=== PATIENT | male | born 1985 | race Two or more races ===

== ENCOUNTER 2024-12-11 10:38 | Inpatient (IN) | payer MEDICAID, OTHER ==
[~2024-12-11] VITALS: Ht 167.6 cm; Wt 87.2 kg
[2024-12-11] VITALS (8 sets, daily range): BP systolic 144–149; BP diastolic 92–98; PULSE 22–108; RESP 11–22; TEMP 98.5–98.9; O2SAT 5–99
--- NOTE | 2024-12-11 11:32 | ED.PDOC ---
History of Present Illness HPI Comments 39-year-old male with PMHx CKF, HTN presents with a chief complaint of SOB. Patient states that he receives dialysis every Mon/Mon/Mon and last had dialysis on Monday12/06/2024. Patient mentions that now he has developed SOB. 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 Patient mentions the last place he had dialysis was "[facility]". Patient has a dialysis shunt in his right clavicle area. Chief Complaint: Shortness of Breath Time Seen by MD: 11:22 Reviewed Notes: Nurses Notes, Medications, Allergies Allergies: Coded Allergies: Penicillins (Verified Allergy, Unknown, 12/11/24) Information Source: Patient Mode of Arrival: Ambulatory Severity: Moderate Timing: Days Duration: Since onset Prehospital treatment: None Past Medical History PAST MEDICAL HISTORY: CKF, HTN Surgical History (Other): KIDNEY SURGERY, CATARACTS Family History Family History: Reviewed,noncontributory to illness Social History Smoker: Non-Smoker Alcohol: Denies ETOH Use Drugs: Denies Drug Use Lives In: Home Constitutional: denies: chills, diaphoresis, fatigue, fever, malaise, sweats, weakness, others EENTM: denies: blurred vision, double vision, ear bleeding, ear discharge, ear drainage, ear pain, ear ringing, eye pain, eye redness, hearing loss, mouth pain, mouth swelling, nasal discharge, nose bleeding, nose congestion, nose pa in, photophobia, tearing, throat pain, throat swelling, voice changes, others Respiratory: reports: shortness of breath; denies: cough, hemoptysis, orthopnea, SOB at rest, SOB with excertion, stridor, wheezing, others Cardiovascular: denies: chest pain, dizzy spells, diaphoresis, Dyspnea on exertion, edema, irregular heart beat, left arm pain, lightheadedness, palpitations, PND, syncope, others Gastrointestinal: denies: abdomen distended, abdominal pain, blood streaked bowels, constipated, diarrhea, dysphagia, difficulty swallowing, hematemesis, m elfego, nausea, poor appetite, poor fluid intake, rectal bleeding, rectal pain, vomiting, others Genitourinary: denies: burning, dysuria, flank pain, frequency, hematuria, incontinence, penile discharge, penile sore, pain, testicle pain, testicle swelling, urgency, others Neurological: denies: dizziness, fainting, headache, left sided numbness, left sided weakness, numbness, paresthesia, pre-existing deficit, right sided numbness, right sided weakness, seizure, speech problems, tingling, tremors, weakness, others Musculoskeletal: denies: back pain, gout, joint pain, joint swelling, muscle pain, muscle stiffness, neck pain, others Integumetry: denies: bruises, change in color, change in hair/nails, dryness, laceration, lesions, lumps, rash, wounds, others Allergic/Immunocompromised: denies: Difficulty Healing, Frequent Infections, Hives, Itching, others Hematologic/Lymphatic: denies: anemia, blood clots, easy bleeding, easy bruising, swollen glands, others Endocrine: denies: excessive hunger, excessive sweating, excessive thirst, excessive urination, flushing, intolerance to cold, intolerance to heat, unexplained weight gain, unexplained weight loss, others Psychiatric: denies: anxiety, bipolar disorder, depression, hopeless, panic disorder, schizophrenia, sleepless, suicidal, others All Other Systems: Reviewed and Negative Physical Exam General Appearance: Moderate Distress HEENT: Pale Conjuntivae (L), Pale Conjuntivae (R), Pharynx Normal, TMs Normal Neck: Full Range of Motion, Non-Tender, Normal, Normal Inspection Respiratory: Chest Non-Tender, Decreased Breath Sounds, No Accessory Muscle Use, Rales, Respiratory Distress Cardiovascular: No Edema, No JVD, No Murmur, No Gallop, Normal Peripheral Pulse s, Regular Rate/Rhythm, Other (Antonio catheter to the right chest) Breast Exam: Deferred Gastrointestinal: No Organomegaly, Non Tender, No Pulsatile Mass, Normal Bowel Sounds, Soft Genitalia: Deferred Pelvic: Deferred Rectal: Deferred Extremities: No calf tenderness, Normal capillary refill, Pedal edema Musculoskeletal : Apperance: Normal Neurologic: Alert, hematology technician II-XII nml as Tested, Motor Weakness, Normal Affect, Normal Mood, No Sensory Deficits Cerebellar Function: Unable to Test Reflexes: Normal Skin: Dry, Pallor, Warm Lymphatic: No Adenopathy Was a procedure done? Was a procedure done?: No EKG EKG : Pulse Rate (adult): 102 [place]: Normal Cardiac Rhythm: ST Block: None Hypertrophy: LVH ST: Normal Differential Dx Considerations may include: Generalized weakness, acute renal failure, hyperkalemia, electrolyte imbalance X-Ray, Labs, Meds, VS Vital Signs Date Time Temp Pulse Resp B/P (MAP) Pulse Ox O2 Delivery O2 Flow Rate FiO2 12/11/24 11:50 99.0 107 18 168/106 (126) 93 12/11/24 11:32 102 12/11/24 11:22 107 Lab Test 12/11/24 11:40 Range/Units White Blood Count 10.0 4.4-10.8 10^3/uL Red Blood Count 2.23 L 4.5-5.90 10^6/uL Hemoglobin 6.9 *L 13.5-17.5 g/dL Hematocrit 20.5 L 41.0-53.0 % Mean Corpuscular Volume 91.8 80.0-100.0 fL Mean Corpuscular Hemoglobin 30.9 28.0-32.0 pg Mean Corpuscular Hemoglobin Concent 33.7 32.0-36.0 g/dL Red Cell Distribution Width 15.3 H 11.8-14.3 % Platelet Count 287 140-450 10^3/uL Mean Platelet Volume 7.1 6.9-10.8 fL Neutrophils (%) (Auto) 84.7 H 37.0-80.0 % Lymphocytes (%) (Auto) 8.5 L 10.0-50.0 % Monocytes (%) (Auto) 5.1 0.0-12.0 % Eosinophils (%) (Auto) 0.7 0.0-7.0 % Basophils (%) (Auto) 1.0 0.0-2.0 % Neutrophils # (Auto) 8.5 1.6-8.6 10 ^3/uL Lymphocytes # (Auto) 0.9 0.4-5.4 10 ^3/uL Monocytes # (Auto) 0.5 0-1.3 10 ^3/uL Eosinophils # (Auto) 0.1 0-0.8 10 ^3/uL Basophils # (Auto) 0.1 0-0.2 10 ^3/uL Nucleated Red Blood Cells 0.0 % Platelet Estimate Pending Sodium Level 143 136-145 mmol/L Potassium Level 5.2 H 3.5-5.1 mmol/L Chloride Level 103 98-107 mmol/L Carbon Dioxide Level 25 20-31 mmol/L Anion Gap 15 5-15 Blood Urea Nitrogen 83 *H 9-23 mg/dL Creatinine 19.20 *H 0.700-1.30 mg/dL Glomerular Filtration Rate Calc 3 >90 mL/min BUN/Creatinine Ratio 4.3 L 10.0-20.0 Serum Glucose 101 74-106 mg/dL Calcium Level 10.2 8.7-10.4 mg/dL Magnesium Level 2.3 1.6-2.6 mg/dL Chest X-Ray Impression: 1. Diffuse bilateral pulmonary infiltrates may be due to pneumonia and/or CHF. 2. Cardiomegaly. 3. Postoperative changes of right chest tunneled dialysis catheter and left upper abdominal vascular coiling. The patient's CBC shows significant anemia with a hemoglobin of 6.9 and hematocrit of 20.5 The platelets are within normal limits The chemistry panel shows a potassium of 5.2 The BUN is 83 and the creatinine is 19.20 At this time, the patient was being admitted to the hospitalist A nephrology consult is being obtained for dialysis at this time The patient is being admitted Images Reviewed?: Images reviewed and evaluated by me Time of 1ST Reevaluation: 11:52 Reevaluation 1ST: Unchanged Patient Education/Counseling: Diagnosis, Treatment, Prognosis Family Education/Counseling: No Family Present Departure 1 Departure Time of Disposition: 12:28 Impression: Primary Impression: ESRD needing dialysis Additional Impressions: Pulmonary edema Qualified Codes: J81.0 - Acute pulmonary edema Hyperkalemia Disposition: ADMITTED INPATIENT Admit to: [facility] Condition: Fair Critical Care Note Critical Care Time?: Yes (55 min-critical care time only) Stability Stability form required: Yes Unstable for transfer: Telemetry monitoring (Telemetry monitoring required), ED Physician Assesment (Clinical assesment) Heart Score Heart Score: Heart Score Response (Comments) Value History N/A 0 EKG N/A 0 Age N/A 0 Risk Factors N/A 0 Troponin N/A 0 Total 0 I personally scribed for TAMY HAGAN MD ([email or web address]) on 12/11/24 at 11:32. Electronically submitted by Petey Vallejo ([email or web address]). I personally scribed for TAMY HAGAN MD ([email or web address]) on 12/11/24 at 11:52. Electronically submitted by Petey Vallejo ([email or web address]). TAMY HAGAN MD Dec 11, 2024 11:32
--- NOTE | 2024-12-11 11:50 | DVH ---
EXAM: XY CHEST TWO VIEWS ROUTINE HISTORY: sob COMPARISON: None TECHNIQUE: Frontal and lateral views of the chest were performed. FINDINGS: There is a right chest tunnel dialysis catheter with its tip in the upper to mid SVC. There are diff use bilateral interstitial and alveolar infiltrates. No pneumothorax. The heart is enlarged. There a re vascular coils in the left upper abdomen. IMPRESSION: 1. Diffuse bilateral pulmonary infiltrates may be due to pneumonia and/or CHF. 2. Cardiomegaly. 3. Postoperative changes of right chest tunneled dialysis catheter and left upper abdominal vascular coiling.
[2024-12-11 11:56] LABS: Basophils # (auto) 0.1 10 ^3/uL (0-0.2); Eosinophils # (auto) 0.1 10 ^3/uL (0-0.8); Eosinophils % (auto) 0.7 % (0.0-7.0); Monocytes # (auto) 0.5 10 ^3/uL (0-1.3); Monocytes % (auto) 5.1 % (0.0-12.0); Red Blood Cells 2.23 10^6/uL (4.5-5.90)
[2024-12-11 11:58] LABS: Hematocrit 20.5 % (41.0-53.0); Lymphocytes # (auto) 0.9 10 ^3/uL (0.4-5.4); Lymphocytes % (auto) 8.5 % (10.0-50.0); Mean Corpuscular Hemoglobin 30.9 pg (28.0-32.0); Mean Corpuscular Hgb Conc. 33.7 g/dL (32.0-36.0); Mean Corpuscular Volume 91.8 fL (80.0-100.0); Neutrophils # (auto) 8.5 10 ^3/uL (1.6-8.6); Neutrophils % (auto) 84.7 % (37.0-80.0); Platelet Count (auto) 287 10^3/uL (140-450); Red Cell Distribution Width 15.3 % (11.8-14.3)
[2024-12-11 12:02] LABS: Hemoglobin 6.9 g/dL (13.5-17.5)
[2024-12-11 12:03] LABS: Chloride 103 mmol/L (98-107); Sodium 143 mmol/L (136-145)
[2024-12-11 12:04] LABS: Anion Gap 15 (5-15); Calcium 10.2 mg/dL (8.7-10.4); Carbon Dioxide 25 mmol/L (20-31)
[2024-12-11 12:05] LABS: Potassium 5.2 mmol/L (3.5-5.1)
[2024-12-11 12:09] LABS: BUN/Creatinine Ratio 4.3 (10.0-20.0); Glucose 101 mg/dL (74-106)
[2024-12-11 12:10] LABS: Magnesium 2.3 mg/dL (1.6-2.6)
[2024-12-11 12:12] LABS: Blood Urea Nitrogen 83 mg/dL (9-23)
[2024-12-11 13:23] LABS: Platelet Estimate Adequate
--- NOTE | 2024-12-11 15:20 | DVHINCON2 ---
Date of service: Dec 11, 2024 Reason for Consultation ESRD History of Present Illness 39 years old male with past medical history of hypertension, ESRD on dialysis Monday schedule presented with chief complaints of shortness of breath and not feeling well after dialysis Patient tells me [place] moved [place] here and staying with his brother yesterday and does not have outpt HD set up.. He is on dialysis about a month now. Last dialysis was last Monday Past Medical History As per HPI Allergies: Coded Allergies: Penicillins (Verified Allergy, Unknown, 12/11/24) Review of Systems As mentioned in HPI H&P Exam Vital Signs/I&O Vital Sign Date Time Temp Pulse Resp B/P (MAP) Pulse Ox O2 Delivery O2 Flow Rate FiO2 12/11/24 11:50 99.0 107 18 168/106 (126) 93 Physical Exam General-in mild respiratory distress HEENT-normocephalic, no icterus, no pallor, neck supple Respiratory-fair air entry bilateral, [id number] heard, no murmurs appreciated Abdominal-soft, nontender, nondistended Musculoskeletal-positive pedal edema, no calf tenderness Genitourinary-deferred Neuro-awake alert oriented x3, Psychiatric-not agitated, cooperative, Labs/Diagnostic Data Labs/Diagnostic Data Laboratory Tests Test 12/11/24 11:40 Range/Units White Blood Count 10.0 4.4-10.8 10^3/uL Red Blood Count 2.23 L 4.5-5.90 10^6/uL Hemoglobin 6.9 *L 13.5-17.5 g/dL Hematocrit 20.5 L 41.0-53.0 % Mean Corpuscular Volume 91.8 80.0-100.0 fL Mean Corpuscular Hemoglobin 30.9 28.0-32.0 pg Mean Corpuscular Hemoglobin Concent 33.7 32.0-36.0 g/dL Red Cell Distribution Width 15.3 H 11.8-14.3 % Platelet Count 287 140-450 10^3/uL Mean Platelet Volume 7.1 6.9-10.8 fL Neutrophils (%) (Auto) 84.7 H 37.0-80.0 % Lymphocytes (%) (Auto) 8.5 L 10.0-50.0 % Monocytes (%) (Auto) 5.1 0.0-12.0 % Eosinophils (%) (Auto) 0.7 0.0-7.0 % Basophils (%) (Auto) 1.0 0.0-2.0 % Neutrophils # (Auto) 8.5 1.6-8.6 10 ^3/uL Lymphocytes # (Auto) 0.9 0.4-5.4 10 ^3/uL Monocytes # (Auto) 0.5 0-1.3 10 ^3/uL Eosinophils # (Auto) 0.1 0-0.8 10 ^3/uL Basophils # (Auto) 0.1 0-0.2 10 ^3/uL Nucleated Red Blood Cells 0.0 % Platelet Estimate Adequate Sodium Level 143 136-145 mmol/L Potassium Level 5.2 H 3.5-5.1 mmol/L Chloride Level 103 98-107 mmol/L Carbon Dioxide Level 25 20-31 mmol/L Anion Gap 15 5-15 Blood Urea Nitrogen 83 *H 9-23 mg/dL Creatinine 19.20 *H 0.700-1.30 mg/dL Glomerular Filtration Rate Calc 3 >90 mL/min BUN/Creatinine Ratio 4.3 L 10.0-20.0 Serum Glucose 101 74-106 mg/dL Calcium Level 10.2 8.7-10.4 mg/dL Magnesium Level 2.3 1.6-2.6 mg/dL Assessment ESRD on hemodialysis- moved from other state Noncompliance Hypertension uncontrolled Acute hypoxic respiratory failure Obesity Anemia recs Hemodialysis arranged for today [facility] with HD Diuretics IV protective services social worker for chair time in this area We will follow closely Plan discussed with: Patient OSWALDO ISAAC MD Dec 11, 2024 15:20
[2024-12-11] MEDS ORDERED: AMLO1TAB23 PO (15:40)
[2024-12-11] MEDS ORDERED: HYDROcodone-ACET 5/325MG TAB PO PRN (15:45)
[2024-12-11] MEDS ORDERED: DOCUSATE SOD 100 MG CAP PO PRN (15:45)
[2024-12-11] MEDS ORDERED: ONDANSETRON HCL 4 MG/2 ML VIAL IV PRN (15:45)
[2024-12-11] MEDS ORDERED: ACETAMINOPHEN 325 MG TAB PO PRN (15:45)
[2024-12-11] MEDS ORDERED: NITROGLYCERIN 0.4 MG SL TAB SL PRN (15:45)
[2024-12-11] MEDS ORDERED: MORPHINE SULFATE INJ 2 MG/ml SYRG IV PRN (15:45)
--- NOTE | 2024-12-11 15:58 | DVHHP2 ---
History of Present Illness Reason for Visit: ESRD needing dialysis History of Present Illness Elizabeth Sandoval is a 39-year-old male with past medical history of hypertension, and ESRD on HD M,W,F, who came in due to needing dialysis. Patient has been on hemodialysis for about 7-8 months. He recently moved from [place] to [facility] to live with his brother. Last dialysis was on 12/06/2024. Patient states he missed dialysis due to moving, and he just arrived in [place] yesterday. Patient started experiencing shortness of breath yesterday prompting him to come to the hospital. He states he still makes urine, was on a water pill, but the only medication he has at this time is Amlodipine. On arrival to ER labs revealed that he is anemic, and hyperkalemic. Cardiovascular: HTN Renal/: Chronic renal failure (HD M,W,F) Past Surgical History: Other (bilateral eyes and right kidney) Smoke: Quit (15 days ago) ALCOHOL: none Drugs: None Lives: with Family Review of Systems Constitutional: No: Fever, Chills, Sweats, Weakness, Malaise, Other Eyes: No: Pain, Vision change, Conjunctivae inflammation, Eyelid inflammation, Other, Redness ENT: No: Ear pain, Ear discharge, Nose pain, Nose discharge, Nose congestion, Mouth pain, Mouth swelling, Throat pain, Throat swelling, Other Respiratory: Shortness of breath, SOB with excertion; No: Cough, Dry, Wheezing, Hemoptysis, Pleuritic Pain, Sputum, Wheezing, Other Cardiovascular: No: Chest Pain, Palpitations, Orthopnea, Paroxysmal Noc. Dyspnea, Edema, Lt Headedness, Other Gastrointestinal: No: Nausea, Vomiting, Abdominal Pain, Diarrhea, Constipation, Melena, Hematochezia, Other Genitourinary: No Dysuria, No Frequency, No Incontinence, No Hematuria, No Retention, No Other Musculoskeletal: No: other, neck pain, shoulder pain, arm pain, back pain, hand pain, leg pain, foot pain Skin: No: Rash, Lesions, Jaundice, Bruising, Other Neurological: No: Weakness, Numbness, Incoordination, Change in speech, Confusion, Seizures, Other Allergies: Coded Allergies: Penicillins (Verified Allergy, Unknown, 12/11/24) Medications Current Medications Medications Dose Ordered Sig/Bijal Route Start Time Stop Time Status Last Admin Dose Admin Sodium Chloride 10 ml Q8HR IV 12/11/24 22:00 UNV Acetaminophen/ Hydrocodone Bitart 1 tab Q4HP PRN PO 12/11/24 15:45 UNV Ondansetron HCl 4 mg Q4HP PRN IV 12/11/24 15:45 UNV Docusate Sodium 100 mg BIDPRN PRN PO 12/11/24 15:45 UNV Acetaminophen 650 mg Q6HP PRN PO 12/11/24 15:45 UNV Nitroglycerin 0.4 mg Q5MINP PRN SL 12/11/24 15:45 UNV Morphine Sulfate 2 mg Q30M PRN IV 12/11/24 15:45 UNV Exam Vital Signs Vital Signs Date Time Temp Pulse Resp B/P (MAP) Pulse Ox O2 Delivery O2 Flow Rate FiO2 12/11/24 11:50 99.0 107 18 168/106 (126) 93 General Appearance: Alert, Oriented X3, Cooperative, moderate distress HEENT: Atraumatic, PERRLA Respiratory: Other (Diminished breath sounds) Cardiovascular: Normal S1, Normal S2, Other (tachycardia) Abdominal: Normal bowel sounds, Soft, No tenderness, No hepatospenomegaly Extremities: No clubbing, No cyanosis, No edema, Normal pulses, No tenderness/swelling Skin: No rashes, No breakdown, No significant lesion Neuro: Normal gait, Normal speech, Strength at 5/5 X4 ext Psych/Mental Status: Mental status NL, Mood NL Labs/Xrays Labs Test 12/11/24 11:40 Range/Units White Blood Count 10.0 4.4-10.8 10^3/uL Red Blood Count 2.23 L 4.5-5.90 10^6/uL Hemoglobin 6.9 *L 13.5-17.5 g/dL Hematocrit 20.5 L 41.0-53.0 % Mean Corpuscular Volume 91.8 80.0-100.0 fL Mean Corpuscular Hemoglobin 30.9 28.0-32.0 pg Mean Corpuscular Hemoglobin Concent 33.7 32.0-36.0 g/dL Red Cell Distribution Width 15.3 H 11.8-14.3 % Platelet Count 287 140-450 10^3/uL Mean Platelet Volume 7.1 6.9-10.8 fL Neutrophils (%) (Auto) 84.7 H 37.0-80.0 % Lymphocytes (%) (Auto) 8.5 L 10.0-50.0 % Monocytes (%) (Auto) 5.1 0.0-12.0 % Eosinophils (%) (Auto) 0.7 0.0-7.0 % Basophils (%) (Auto) 1.0 0.0-2.0 % Neutrophils # (Auto) 8.5 1.6-8.6 10 ^3/uL Lymphocytes # (Auto) 0.9 0.4-5.4 10 ^3/uL Monocytes # (Auto) 0.5 0-1.3 10 ^3/uL Eosinophils # (Auto) 0.1 0-0.8 10 ^3/uL Basophils # (Auto) 0.1 0-0.2 10 ^3/uL Nucleated Red Blood Cells 0.0 % Platelet Estimate Adequate Sodium Level 143 136-145 mmol/L Potassium Level 5.2 H 3.5-5.1 mmol/L Chloride Level 103 98-107 mmol/L Carbon Dioxide Level 25 20-31 mmol/L Anion Gap 15 5-15 Blood Urea Nitrogen 83 *H 9-23 mg/dL Creatinine 19.20 *H 0.700-1.30 mg/dL Glomerular Filtration Rate Calc 3 >90 mL/min BUN/Creatinine Ratio 4.3 L 10.0-20.0 Serum Glucose 101 74-106 mg/dL Calcium Level 10.2 8.7-10.4 mg/dL Magnesium Level 2.3 1.6-2.6 mg/dL EXAM: XY CHEST TWO VIEWS ROUTINE FINDINGS: There is a right chest tunnel dialysis catheter with its tip in the upper to mid SVC. There are diffuse bilateral interstitial and alveolar infiltrates. No pneumothorax. The heart is enlarged. There are vascular coils in the left upper abdomen. IMPRESSION: 1. Diffuse bilateral pulmonary infiltrates may be due to pneumonia and/or CHF. 2. Cardiomegaly. 3. Postoperative changes of right chest tunneled dialysis catheter and left upper abdominal vascular coiling. Assessment/Plan Assessment/Plan Assessment: ESRD needing dialysis, Hypertension, Anemia, Hyperkalemia, Fluid overload, Plan: Admit to Tele, Nephrology consult, Transfuse 1 unit PRBC, Home medications reconciled, Manage/Monitor H&H closely, Plan discussed with: Patient My Orders Orders - THAIS STALLINGS Procedure Category Date Status Time Admit ADMIT 12/11/24 Transmitted 15:38 Code Status CODE 12/11/24 Transmitted 15:38 Renal DIET 12/11/24 Transmitted Standard(2gna,3gk,Lopho) Dinner Sodium Chloride Lock PHA 12/11/24 Logged (Saline Lock Ns) 22:00 Hydrocodone-Acet PHA 12/11/24 Logged 5/325mg Tab ([place] 15:45 Ondansetron Hcl PHA 12/11/24 Logged (Zofran) 15:45 Docusate Sodium PHA 12/11/24 Logged Capsule (Colace 15:45 Complete Blood Count LAB 12/12/24 Verified 04:00 Comprehensive LAB 12/12/24 Verified Metabolic Panel 04:00 Condition: Critical RIANNA 12/11/24 In Process 15:38 Acetaminophen Tablet PHA 12/11/24 Logged (Tylenol Tablet) 15:45 Nitroglycerin PHA 12/11/24 Logged Sublingual (Ntrostat 15:45 Morphine Sulfate PHA 12/11/24 Logged Injection 15:45 Stat Ekg For Chest RIANNA 12/11/24 In Process Pain 15:38 Notify Md Of Changes RIANNA 12/11/24 In Process From Base 15:38 Assistant Property Manager For RIANNA 12/11/24 In Process 24 Hours 15:38 Emergency Dysrhythmia [facility] 12/11/24 In Process Protocol 15:38 Rhythm Strips Once RIANNA 12/11/24 In Process Every Shift 15:38 Oxygen By Nasal RT 12/11/24 Transmitted Cannula 15:38 (Nf) Amlodipine PHA 12/11/24 Transmitted Besylate 22:00 Date of Service: Dec 11, 2024 Billing Provider: THAIS STALLINGS Common Visit Codes: [id number] INP/OBS CARE (HIGH) THAIS STALLINGS Dec 11, 2024 15:58
[2024-12-11] MEDS: SODIUM CHL 0.9% 1000 ML BAG XX ONE (18:45)
[2024-12-11] MEDS: BUMETANIDE 2.5mg/10ml (0.25 mg/ml) INJ IV SCH (18:58)
[2024-12-11] MEDS: EPOETIN ALFA-EPBX 4,000 UNIT/ML VIAL SC ONE (21:26)
[2024-12-11] MEDS: SODIUM CHLOR 0.9% PF (SALINE LOCK) 10ML VIAL/SYR IV SCH (22:00)
[2024-12-12] VITALS (7 sets, daily range): BP systolic 125–164; BP diastolic 76–100; PULSE 96–108; RESP 16–18; TEMP 97.9–98.7; O2SAT 93–99
[2024-12-12 07:02] LABS: Basophils # (auto) 0 10 ^3/uL (0-0.2); Eosinophils # (auto) 0.2 10 ^3/uL (0-0.8); Lymphocytes # (auto) 0.7 10 ^3/uL (0.4-5.4); Mean Corpuscular Volume 90.7 fL (80.0-100.0); Monocytes # (auto) 0.5 10 ^3/uL (0-1.3); Monocytes % (auto) 6.6 % (0.0-12.0); Red Blood Cells 2.25 10^6/uL (4.5-5.90)
[2024-12-12 07:04] LABS: Basophils % (auto) 0.6 % (0.0-2.0); Eosinophils % (auto) 3.1 % (0.0-7.0); Hematocrit 20.5 % (41.0-53.0); Hemoglobin 7.1 g/dL (13.5-17.5); Lymphocytes % (auto) 10.8 % (10.0-50.0); Mean Corpuscular Hemoglobin 31.4 pg (28.0-32.0); Mean Corpuscular Hgb Conc. 34.6 g/dL (32.0-36.0); Neutrophils # (auto) 5.5 10 ^3/uL (1.6-8.6); Neutrophils % (auto) 78.9 % (37.0-80.0); Platelet Count (auto) 233 10^3/uL (140-450); Red Cell Distribution Width 15.5 % (11.8-14.3)
[2024-12-12 07:41] LABS: Albumin 4.3 g/dL (3.2-4.8); Alkaline Phosphatase 84 U/L (46-116); Anion Gap 13 (5-15); BUN/Creatinine Ratio 4.1 (10.0-20.0); Bilirubin, Total 0.5 mg/dL (0.2-1.0); Calcium 9.7 mg/dL (8.7-10.4); Carbon Dioxide 28 mmol/L (20-31); Chloride 100 mmol/L (98-107); Glucose 77 mg/dL (74-106); Magnesium 2.1 mg/dL (1.6-2.6); Potassium 4.8 mmol/L (3.5-5.1); Sodium 141 mmol/L (136-145); Total Protein 6.4 g/dL (5.7-8.2)
[2024-12-12 07:51] LABS: Alanine Aminotransferase < 9 U/L (7-40); Aspartate Aminotransferase < 8 U/L (13-40); Blood Urea Nitrogen 55 mg/dL (9-23); Phosphorus 5.8 mg/dL (2.4-5.1)
[2024-12-12] MEDS: amLODIPine BESYLATE 5 MG TAB PO SCH (10:25)
[2024-12-12 11:50] LABS: Hepatitis B Core IgM Negative (Negative); Hepatitis B Surface Antibody Negative (Negative); Hepatitis B Surface Antigen Negative (Negative); Hepatitis C Antibody Negative (Negative)
--- NOTE | 2024-12-12 13:01 | ECG ---
[facility] Test Date: 2024-12-11 Test Time: 11:22:28 Pat Name: MARIO ARZATEDepartment: ER Room: 0292T A Gender: M Specialty Development Consultant: AIDEE : [id number] Requested By: TAMY HAGAN Order Number: [id number] Reading MD: Oliver Gaytan Measurements Intervals [place] Rate: 102 P: 75 AR: 173 QRS: 37 QRSD: 98 T: 118 QT: 349 QTc: 455 Interpretive Statements Sinus tachycardia Probable LVH with secondary repol abnrm Baseline wander in lead(s) V1 Electronically Signed On 12-14-2024 17:52:12 PST by Oliver Gaytan Please click the below link to view image of tracing.
[2024-12-12] MEDS: hydrALAZINE HCL 20 MG/ML VL IV PRN (13:19)
--- NOTE | 2024-12-12 15:18 | DVHPN2 ---
Progress Note Date Seen: Dec 12, 2024 Medical Necessity Reason Pt with a Central, PICC or Fol: Yes Subjective Patient reports: No new complaints, Feels better Review of Systems: HEENT:Normal, CVS:Normal, RESPIRATORY:Normal, GI:Normal, :Normal, MSK:Normal, NEURO:Normal Objective vital signs Vital Sign Date Time Temp Pulse Resp B/P (MAP) Pulse Ox O2 Delivery O2 Flow Rate FiO2 12/12/24 13:19 152/94 12/12/24 13:00 97.9 104 18 94 97.9 12/12/24 08:20 Room Air* 0 21 Total Intake and Output 12/11/24 12/11/24 12/12/24 15:00 23:00 07:00 Intake Total 129 ml 200 ml Output Total 0 ml 0 ml Balance 129 ml 200 ml medications Current Medications Medications Dose Ordered Sig/Bijal Route Start Time Stop Time Status Last Admin Dose Admin Sodium Chloride 10 ml Q8HR IV 12/11/24 22:00 12/12/24 14:05 10 ML Acetaminophen/ Hydrocodone Bitart 1 tab Q4HP PRN PO 12/11/24 15:45 Ondansetron HCl 4 mg Q4HP PRN IV 12/11/24 15:45 Docusate Sodium 100 mg BIDPRN PRN PO 12/11/24 15:45 Acetaminophen 650 mg Q6HP PRN PO 12/11/24 15:45 Nitroglycerin 0.4 mg Q5MINP PRN SL 12/11/24 15:45 Morphine Sulfate 2 mg Q30M PRN IV 12/11/24 15:45 Amlodipine Besylate 10 mg BID PO 12/12/24 10:00 12/12/24 10:25 10 MG Bumetanide 2.5 mg BIDD IV 12/11/24 18:00 12/12/24 05:47 2.5 MG Hydralazine HCl 10 mg Q4HPRN PRN IV 12/12/24 12:15 12/12/24 13:19 10 MG Examination: GENERAL:Normal, HEENT:Normal, NECK:Normal, LUNGS:Normal, CVS:Normal, ABDOMEN:Normal, MSK:Abnormal, SKIN:Normal, NEURO:Normal, :Normal laboratory and microbiology Laboratory Tests 12/12/24 05:23 Test 12/12/24 05:23 Range/Units Serum Glucose 77 74-106 mg/dL Problem List/Assessment/Plan Problem List/Assessment/Plan ESRD on hemodialysis- moved from other state Noncompliance Hypertension uncontrolled Acute hypoxic respiratory failure Obesity Anemia secondary hyperparathyroidism recs Hemodialysis arranged for today [facility] with HD Diuretics IV clinical services professional for chair time [facility] We will follow closely Plan discussed with: Patient My Orders My Orders Orders - OSWALDO ISAAC MD Procedure Category Date Status Time Communication Order ORDERS 12/11/24 Transmitted 17:36 Bumetanide Injection PHA 12/11/24 In Process (Bumex Injection) 18:00 * Consumer Affairs Manager CONS 12/12/24 Transmitted Consult Hemodialysis Orders ORDERS 12/12/24 Transmitted 15:16 CC Plasma Assessment Blood Product Administration S: 2058 OSWALDO ISAAC MD Dec 12, 2024 15:18
--- NOTE | 2024-12-12 17:42 | DVHPN2 ---
Subjective In bed resting Changes from previous H/P or p: No Changes Eyes: No Pain, No Vision change, No Conjunctivae inflammation, No Eyelid inflammation, No Other, No Redness ENT: No Ear pain, No Ear discharge, No Nose pain, No Nose discharge, No Nose congestion, No Mouth pain, No Mouth swelling, No Throat pain, No Throat swelling, No Other Cardiovascular: No Chest Pain, No Palpitations, No Orthopnea, No Paroxysmal Noc. Dyspnea, No Edema, No Lt Headedness, No Other Respiratory: Shortness of breath, SOB with excertion Gastrointestinal: No Nausea, No Vomiting, No Abdominal Pain, No Diarrhea, No Constipation, No Melena, No Hematochezia, No Other Genitourinary: No Dysuria, No Frequency, No Incontinence, No Hematuria, No Retention, No Other Musculoskeletal: No other, No neck pain, No shoulder pain, No arm pain, No back pain, No hand pain, No leg pain, No foot pain Skin: No Rash, No Lesions, No Jaundice, No Bruising, No Other Objective Vitals Vital Signs Date Time Temp Pulse Resp B/P (MAP) Pulse Ox O2 Delivery O2 Flow Rate FiO2 12/12/24 16:59 97.9 106 16 145/90 (108) 99 97.9 12/12/24 08:20 Room Air* 0 21 Intake/Output Intake and Output 12/12/24 07:00 Intake Total 329 ml Output Total 0 ml Balance 329 ml Intake Oral 200 ml Blood Product 129 ml Output Urine Total 0 ml General Appearance: Alert, Oriented X3 Lungs: Clear to auscultation Cardiovascular: Regular rate, Normal S1, Normal S2 Medications Current Medications Medications Dose Ordered Sig/Bijal Route Start Time Stop Time Status Last Admin Dose Admin Sodium Chloride 10 ml Q8HR IV 12/11/24 22:00 12/12/24 14:05 10 ML Acetaminophen/ Hydrocodone Bitart 1 tab Q4HP PRN PO 12/11/24 15:45 Ondansetron HCl 4 mg Q4HP PRN IV 12/11/24 15:45 Docusate Sodium 100 mg BIDPRN PRN PO 12/11/24 15:45 Acetaminophen 650 mg Q6HP PRN PO 12/11/24 15:45 Nitroglycerin 0.4 mg Q5MINP PRN SL 12/11/24 15:45 Morphine Sulfate 2 mg Q30M PRN IV 12/11/24 15:45 Amlodipine Besylate 10 mg BID PO 12/12/24 10:00 12/12/24 10:25 10 MG Bumetanide 2.5 mg BIDD IV 12/11/24 18:00 12/12/24 05:47 2.5 MG Hydralazine HCl 10 mg Q4HPRN PRN IV 12/12/24 12:15 12/12/24 13:19 10 MG Sevelamer HCl 800 mg TIDWM PO 12/12/24 18:00 Laboratory Results Laboratory Tests 12/12/24 05:23 Chemistry Test 12/12/24 05:23 Albumin 4.3 g/dL (3.2-4.8) Calcium Level 9.7 mg/dL (8.7-10.4) Magnesium Level 2.1 mg/dL (1.6-2.6) Phosphorus Level 5.8 mg/dL (2.4-5.1) H Total Protein 6.4 g/dL (5.7-8.2) LFT Test 12/12/24 05:23 Alanine Aminotransferase (ALT) < 9 U/L (7-40) Alkaline Phosphatase 84 U/L (46-116) Aspartate Amino Transferase (AST) < 8 U/L (13-40) L Total Bilirubin 0.5 mg/dL (0.2-1.0) Assessment/Plan Assessment/Plan #ESRD needing dialysis, #Hypertension, #Anemia, #Hyperkalemia, #Fluid overload, Continue HD monitor CBC and BMP Plan discussed with: Patient My Orders Orders - FERNANDO GONZALES MD Procedure Category Date Status Time Hydralazine Injection PHA 12/12/24 In Process (Apresoline Inject 12:15 Date of Service: Dec 12, 2024 Billing Provider: FERNANDO GONZALES MD Common Visit Codes: [id number] INP/OBS CARE(HIGH) FERNANDO GONZALES MD Dec 12, 2024 17:42
[2024-12-12] MEDS: SEVELAMER 800 MG TAB PO SCH (18:23)
[2024-12-13] VITALS (8 sets, daily range): BP systolic 129–151; BP diastolic 68–99; PULSE 84–91; RESP 17–20; TEMP 97.9–98.4; O2SAT 97–99
--- NOTE | 2024-12-13 08:26 | DVHPN2 ---
Progress Note Date Seen: Dec 13, 2024 Medical Necessity Reason Pt with a Central, PICC or Fol: Yes Subjective Patient reports: No new complaints, Feels better Review of Systems: Deferred Objective vital signs Vital Sign Date Time Temp Pulse Resp B/P (MAP) Pulse Ox O2 Delivery O2 Flow Rate FiO2 12/13/24 06:13 148/68 12/13/24 05:00 98.1 90 18 97 98.1 12/12/24 20:00 Room Air* 0 21 Total Intake and Output 12/12/24 12/12/24 12/13/24 15:00 23:00 07:00 Intake Total 800 ml 125 ml Balance 800 ml 125 ml medications Current Medications Medications Dose Ordered Sig/Bijal Route Start Time Stop Time Status Last Admin Dose Admin Sodium Chloride 10 ml Q8HR IV 12/11/24 22:00 12/13/24 06:13 10 ML Acetaminophen/ Hydrocodone Bitart 1 tab Q4HP PRN PO 12/11/24 15:45 Ondansetron HCl 4 mg Q4HP PRN IV 12/11/24 15:45 Docusate Sodium 100 mg BIDPRN PRN PO 12/11/24 15:45 Acetaminophen 650 mg Q6HP PRN PO 12/11/24 15:45 Nitroglycerin 0.4 mg Q5MINP PRN SL 12/11/24 15:45 Morphine Sulfate 2 mg Q30M PRN IV 12/11/24 15:45 Amlodipine Besylate 10 mg BID PO 12/12/24 10:00 12/12/24 21:15 10 MG Bumetanide 2.5 mg BIDD IV 12/11/24 18:00 12/13/24 06:13 2.5 MG Hydralazine HCl 10 mg Q4HPRN PRN IV 12/12/24 12:15 12/12/24 18:24 10 MG Sevelamer HCl 800 mg TIDWM PO 12/12/24 18:00 12/12/24 18:23 800 MG Examination: GENERAL:Normal, HEENT:Normal, NECK:Normal, LUNGS:Normal, CVS:Normal, ABDOMEN:Normal, MSK:Normal, SKIN:Normal, NEURO:Normal, :Normal laboratory and microbiology Laboratory Tests 12/12/24 05:23 Test 12/12/24 05:23 Range/Units Serum Glucose 77 74-106 mg/dL Problem List/Assessment/Plan Problem List/Assessment/Plan ESRD on hemodialysis- moved from other state Noncompliance Hypertension uncontrolled Acute hypoxic respiratory failure Obesity Anemia secondary hyperparathyroidism recs Hemodialysis tomorrow P[facility]ell with HD Diuretics IV rn social services for chair time in [facility] We will follow closely Plan discussed with: Patient My Orders My Orders Orders - OSWALDO ISAAC MD Procedure Category Date Status Time * Food Service Counter Clerk CONS 12/12/24 Transmitted Consult Hemodialysis Orders ORDERS 12/12/24 Transmitted 15:16 Sevelamer (Renagel) PHA 12/12/24 In Process 18:00 CC Plasma Assessment Blood Product Administration S: [id number] OSWALDO ISAAC MD Dec 13, 2024 08:26
--- NOTE | 2024-12-13 17:59 | DVHPN2 ---
Subjective In bed resting Reviewed: Care Plan Changes from previous H/P or p: No Changes Eyes: No Pain, No Vision change, No Conjunctivae inflammation, No Eyelid inflammation, No Other, No Redness ENT: No Ear pain, No Ear discharge, No Nose pain, No Nose discharge, No Nose congestion, No Mouth pain, No Mouth swelling, No Throat pain, No Throat swelling, No Other Cardiovascular: No Chest Pain, No Palpitations, No Orthopnea, No Paroxysmal Noc. Dyspnea, No Edema, No Lt Headedness, No Other Respiratory: Shortness of breath, SOB with excertion Gastrointestinal: No Nausea, No Vomiting, No Abdominal Pain, No Diarrhea, No Constipation, No Melena, No Hematochezia, No Other Genitourinary: No Dysuria, No Frequency, No Incontinence, No Hematuria, No Retention, No Other Musculoskeletal: No other, No neck pain, No shoulder pain, No arm pain, No back pain, No hand pain, No leg pain, No foot pain Skin: No Rash, No Lesions, No Jaundice, No Bruising, No Other Objective Vitals Vital Signs Date Time Temp Pulse Resp B/P (MAP) Pulse Ox O2 Delivery O2 Flow Rate FiO2 12/13/24 16:48 97.9 84 17 129/78 (95) 99 97.9 12/13/24 08:12 Room Air* 0 21 Intake/Output Intake and Output 12/13/24 07:00 Intake Total 925 ml Balance 925 ml Intake Oral 925 ml # Voids 3 # Bowel Movements 1 General Appearance: Alert, Oriented X3 Lungs: Clear to auscultation Cardiovascular: Regular rate, Normal S1, Normal S2 Medications Current Medications Medications Dose Ordered Sig/Bijal Route Start Time Stop Time Status Last Admin Dose Admin Sodium Chloride 10 ml Q8HR IV 12/11/24 22:00 12/13/24 14:00 10 ML Acetaminophen/ Hydrocodone Bitart 1 tab Q4HP PRN PO 12/11/24 15:45 Ondansetron HCl 4 mg Q4HP PRN IV 12/11/24 15:45 Docusate Sodium 100 mg BIDPRN PRN PO 12/11/24 15:45 Acetaminophen 650 mg Q6HP PRN PO 12/11/24 15:45 Nitroglycerin 0.4 mg Q5MINP PRN SL 12/11/24 15:45 Morphine Sulfate 2 mg Q30M PRN IV 12/11/24 15:45 Amlodipine Besylate 10 mg BID PO 12/12/24 10:00 12/13/24 09:23 10 MG Bumetanide 2.5 mg BIDD IV 12/11/24 18:00 12/13/24 06:13 2.5 MG Hydralazine HCl 10 mg Q4HPRN PRN IV 12/12/24 12:15 12/13/24 15:12 10 MG Sevelamer HCl 800 mg TIDWM PO 12/12/24 18:00 12/13/24 15:11 800 MG Laboratory Results Laboratory Tests 12/12/24 05:23 Assessment/Plan Assessment/Plan #ESRD needing dialysis, #Hypertension, #Anemia, #Hyperkalemia, #Fluid overload, Continue HD monitor CBC and BMP Plan discussed with: Patient Date of Service: Dec 13, 2024 Billing Provider: FERNANDO GONZALES MD Common Visit Codes: [id number] INP/OBS CARE(HIGH) FERNANDO GONZALES MD Dec 13, 2024 17:59
[2024-12-14] VITALS (9 sets, daily range): BP systolic 121–163; BP diastolic 63–100; PULSE 84–101; RESP 17–20; TEMP 98–98.8; O2SAT 96–99
--- NOTE | 2024-12-14 12:49 | DVHPN2 ---
Progress Note Date Seen: Dec 14, 2024 Medical Necessity Reason Pt with a Central, PICC or Fol: Yes Subjective Patient reports: No new complaints, Feels better Objective vital signs Vital Sign Date Time Temp Pulse Resp B/P (MAP) Pulse Ox O2 Delivery O2 Flow Rate FiO2 12/14/24 11:50 163/63 12/14/24 08:39 98.3 85 17 98 98.3 12/14/24 08:00 Room Air* 0 21 Total Intake and Output 12/13/24 12/13/24 12/14/24 15:00 23:00 07:00 Intake Total 600 ml 120 ml Output Total 3 ml Balance 600 ml 117 ml medications Current Medications Medications Dose Ordered Sig/Bijal Route Start Time Stop Time Status Last Admin Dose Admin Sodium Chloride 10 ml Q8HR IV 12/11/24 22:00 12/14/24 05:31 10 ML Acetaminophen/ Hydrocodone Bitart 1 tab Q4HP PRN PO 12/11/24 15:45 Ondansetron HCl 4 mg Q4HP PRN IV 12/11/24 15:45 Docusate Sodium 100 mg BIDPRN PRN PO 12/11/24 15:45 Acetaminophen 650 mg Q6HP PRN PO 12/11/24 15:45 Nitroglycerin 0.4 mg Q5MINP PRN SL 12/11/24 15:45 Morphine Sulfate 2 mg Q30M PRN IV 12/11/24 15:45 Amlodipine Besylate 10 mg BID PO 12/12/24 10:00 12/14/24 10:08 10 MG Bumetanide 2.5 mg BIDD IV 12/11/24 18:00 12/14/24 05:31 2.5 MG Hydralazine HCl 10 mg Q4HPRN PRN IV 12/12/24 12:15 12/14/24 11:50 10 MG Sevelamer HCl 800 mg TIDWM PO 12/12/24 18:00 12/14/24 11:46 800 MG Examination: GENERAL:Normal, HEENT:Normal, NECK:Normal, LUNGS:Normal, CVS:Normal, ABDOMEN:Normal, MSK:Normal, SKIN:Normal, NEURO:Normal, :Normal laboratory and microbiology Laboratory Tests 12/12/24 05:23 Test 12/12/24 05:23 Range/Units Serum Glucose 77 74-106 mg/dL Problem List/Assessment/Plan Problem List/Assessment/Plan ESRD on hemodialysis- moved from other state Noncompliance Hypertension uncontrolled Acute hypoxic respiratory failure Obesity Anemia secondary hyperparathyroidism recs Hemodialysis monday Pernell with HD Diuretics IV manager managed backup services for chair time in [facility]-pending We will follow closely Plan discussed with: Patient CC Plasma Assessment Blood Product Administration S: [id number] OSWALDO ISAAC MD Dec 14, 2024 12:49
--- NOTE | 2024-12-14 16:14 | DVHPN2 ---
Subjective In bed resting Reviewed: Care Plan Changes from previous H/P or p: No Changes Eyes: No Pain, No Vision change, No Conjunctivae inflammation, No Eyelid inflammation, No Other, No Redness ENT: No Ear pain, No Ear discharge, No Nose pain, No Nose discharge, No Nose congestion, No Mouth pain, No Mouth swelling, No Throat pain, No Throat swelling, No Other Cardiovascular: No Chest Pain, No Palpitations, No Orthopnea, No Paroxysmal Noc. Dyspnea, No Edema, No Lt Headedness, No Other Respiratory: Shortness of breath, SOB with excertion Gastrointestinal: No Nausea, No Vomiting, No Abdominal Pain, No Diarrhea, No Constipation, No Melena, No Hematochezia, No Other Genitourinary: No Dysuria, No Frequency, No Incontinence, No Hematuria, No Retention, No Other Musculoskeletal: No other, No neck pain, No shoulder pain, No arm pain, No back pain, No hand pain, No leg pain, No foot pain Skin: No Rash, No Lesions, No Jaundice, No Bruising, No Other Objective Vitals Vital Signs Date Time Temp Pulse Resp B/P (MAP) Pulse Ox O2 Delivery O2 Flow Rate FiO2 12/14/24 12:48 98.0 87 17 163/63 (96) 99 98.0 12/14/24 08:00 Room Air* 0 21 Intake/Output Intake and Output 12/14/24 07:00 Intake Total 720 ml Output Total 3 ml Balance 717 ml Intake Oral 720 ml Stool Total 3 ml # Voids 1 General Appearance: Alert, Oriented X3 Lungs: Clear to auscultation Cardiovascular: Regular rate, Normal S1, Normal S2 Medications Current Medications Medications Dose Ordered Sig/Bijal Route Start Time Stop Time Status Last Admin Dose Admin Sodium Chloride 10 ml Q8HR IV 12/11/24 22:00 12/14/24 14:47 10 ML Acetaminophen/ Hydrocodone Bitart 1 tab Q4HP PRN PO 12/11/24 15:45 Ondansetron HCl 4 mg Q4HP PRN IV 12/11/24 15:45 Docusate Sodium 100 mg BIDPRN PRN PO 12/11/24 15:45 Acetaminophen 650 mg Q6HP PRN PO 12/11/24 15:45 Nitroglycerin 0.4 mg Q5MINP PRN SL 12/11/24 15:45 Morphine Sulfate 2 mg Q30M PRN IV 12/11/24 15:45 Amlodipine Besylate 10 mg BID PO 12/12/24 10:00 12/14/24 10:08 10 MG Bumetanide 2.5 mg BIDD IV 12/11/24 18:00 12/14/24 05:31 2.5 MG Hydralazine HCl 10 mg Q4HPRN PRN IV 12/12/24 12:15 12/14/24 11:50 10 MG Sevelamer HCl 800 mg TIDWM PO 12/12/24 18:00 12/14/24 11:46 800 MG Laboratory Results Laboratory Tests 12/12/24 05:23 Assessment/Plan Assessment/Plan #ESRD needing dialysis, #Hypertension, #Anemia, #Hyperkalemia, #Fluid overload, Continue HD monitor CBC and BMP Plan discussed with: Patient Date of Service: Dec 14, 2024 Billing Provider: FERNANDO GONZALES MD Common Visit Codes: [id number] INP/OBS CARE(HIGH) FERNANDO GONZALES MD Dec 14, 2024 16:14
[2024-12-14 18:32] LABS: Basophils # (auto) 0 10 ^3/uL (0-0.2); Basophils % (auto) 0.5 % (0.0-2.0); Eosinophils # (auto) 0.3 10 ^3/uL (0-0.8); Eosinophils % (auto) 5.4 % (0.0-7.0); Hematocrit 25.2 % (41.0-53.0); Hemoglobin 8.5 g/dL (13.5-17.5); Lymphocytes # (auto) 0.9 10 ^3/uL (0.4-5.4); Lymphocytes % (auto) 15.3 % (10.0-50.0); Mean Corpuscular Hemoglobin 30.8 pg (28.0-32.0); Mean Corpuscular Hgb Conc. 33.7 g/dL (32.0-36.0); Mean Corpuscular Volume 91.5 fL (80.0-100.0); Monocytes # (auto) 0.8 10 ^3/uL (0-1.3); Monocytes % (auto) 13.8 % (0.0-12.0); Neutrophils # (auto) 3.7 10 ^3/uL (1.6-8.6); Nucleated Red Blood Cells % 0.1 %; Platelet Count (auto) 275 10^3/uL (140-450); Red Blood Cells 2.76 10^6/uL (4.5-5.90); Red Cell Distribution Width 15.3 % (11.8-14.3); White Blood Cell 5.7 10^3/uL (4.4-10.8)
[2024-12-14 18:41] LABS: Anion Gap 9 (5-15); Carbon Dioxide 30 mmol/L (20-31); Chloride 101 mmol/L (98-107); Potassium 4.8 mmol/L (3.5-5.1); Sodium 140 mmol/L (136-145)
[2024-12-14 18:42] LABS: Calcium 9.9 mg/dL (8.7-10.4)
[2024-12-14 18:47] LABS: BUN/Creatinine Ratio 4.5 (10.0-20.0); Glucose 93 mg/dL (74-106)
[2024-12-14 18:50] LABS: Blood Urea Nitrogen 47 mg/dL (9-23)
[2024-12-15] VITALS (8 sets, daily range): BP systolic 143–169; BP diastolic 79–92; PULSE 87–104; RESP 17–20; TEMP 98–98.8; O2SAT 96–98
[2024-12-15 06:48] LABS: Basophils # (auto) 0 10 ^3/uL (0-0.2); Basophils % (auto) 0.8 % (0.0-2.0); Eosinophils # (auto) 0.4 10 ^3/uL (0-0.8); Eosinophils % (auto) 6.2 % (0.0-7.0); Lymphocytes # (auto) 0.9 10 ^3/uL (0.4-5.4); Lymphocytes % (auto) 15.5 % (10.0-50.0); Mean Corpuscular Hemoglobin 30.6 pg (28.0-32.0); Mean Corpuscular Hgb Conc. 33.2 g/dL (32.0-36.0); Monocytes # (auto) 0.7 10 ^3/uL (0-1.3); Monocytes % (auto) 11.9 % (0.0-12.0); Neutrophils % (auto) 65.6 % (37.0-80.0); Nucleated Red Blood Cells % 0.1 %; Platelet Count (auto) 258 10^3/uL (140-450); Red Blood Cells 2.61 10^6/uL (4.5-5.90); Red Cell Distribution Width 15.4 % (11.8-14.3); White Blood Cell 6.1 10^3/uL (4.4-10.8)
[2024-12-15 06:56] LABS: Anion Gap 14 (5-15); Carbon Dioxide 26 mmol/L (20-31); Chloride 99 mmol/L (98-107); Potassium 4.7 mmol/L (3.5-5.1); Sodium 139 mmol/L (136-145)
[2024-12-15 06:57] LABS: Calcium 10.3 mg/dL (8.7-10.4)
[2024-12-15 07:01] LABS: Glucose 97 mg/dL (74-106)
[2024-12-15 07:02] LABS: BUN/Creatinine Ratio 5.1 (10.0-20.0)
[2024-12-15 07:22] LABS: Blood Urea Nitrogen 58 mg/dL (9-23)
--- NOTE | 2024-12-15 15:15 | DVHPN2 ---
Progress Note Date Seen: Dec 15, 2024 Medical Necessity Reason Pt with a Central, PICC or Fol: Yes Subjective Patient reports: No new complaints, Feels better Review of Systems: HEENT:Normal, CVS:Normal, RESPIRATORY:Normal, GI:Normal, :Normal, MSK:Normal, NEURO:Normal Objective vital signs Vital Sign Date Time Temp Pulse Resp B/P (MAP) Pulse Ox O2 Delivery O2 Flow Rate FiO2 12/15/24 15:10 154/92 12/15/24 13:00 98.0 91 17 98 98.0 12/15/24 08:00 Room Air* 0 21 Total Intake and Output 12/14/24 12/14/24 12/15/24 15:00 23:00 07:00 Intake Total 200 ml 1440 ml Output Total 200 ml Balance 0 ml 1440 ml medications Current Medications Medications Dose Ordered Sig/Bijal Route Start Time Stop Time Status Last Admin Dose Admin Sodium Chloride 10 ml Q8HR IV 12/11/24 22:00 12/15/24 13:55 10 ML Acetaminophen/ Hydrocodone Bitart 1 tab Q4HP PRN PO 12/11/24 15:45 Ondansetron HCl 4 mg Q4HP PRN IV 12/11/24 15:45 Docusate Sodium 100 mg BIDPRN PRN PO 12/11/24 15:45 Acetaminophen 650 mg Q6HP PRN PO 12/11/24 15:45 Nitroglycerin 0.4 mg Q5MINP PRN SL 12/11/24 15:45 Morphine Sulfate 2 mg Q30M PRN IV 12/11/24 15:45 Amlodipine Besylate 10 mg BID PO 12/12/24 10:00 12/15/24 09:38 10 MG Bumetanide 2.5 mg BIDD IV 12/11/24 18:00 12/15/24 05:48 2.5 MG Hydralazine HCl 10 mg Q4HPRN PRN IV 12/12/24 12:15 12/15/24 15:10 10 MG Sevelamer HCl 800 mg TIDWM PO 12/12/24 18:00 12/15/24 11:55 800 MG Examination: GENERAL:Normal, HEENT:Normal, NECK:Normal, LUNGS:Normal, CVS:Normal, ABDOMEN:Normal, MSK:Abnormal, SKIN:Normal, NEURO:Normal, :Normal laboratory and microbiology Laboratory Tests 12/15/24 06:09 Test 12/15/24 06:09 Range/Units Serum Glucose 97 74-106 mg/dL Problem List/Assessment/Plan Problem List/Assessment/Plan ESRD on hemodialysis- moved from other state Noncompliance Hypertension uncontrolled Acute hypoxic respiratory failure Obesity Anemia secondary hyperparathyroidism recs Hemodialysis monday Pernell with HD,, IV iron Diuretics IV veterans services specialist for chair time in [facility]-pending We will follow closely Phosphorus binders Status post PRBC transfusion Breathing status improved Plan discussed with: Patient My Orders My Orders Orders - OSWALDO ISAAC MD Procedure Category Date Status Time Iron Panel LAB 12/15/24 Verified 15:13 Iron Ivpb PHA 12/15/24 Verified 15:15 Dietary Evaluation Review Comments: 1) Refer to outpatient RD to funeral pre arrangement counselor on renal diet and importance of limiting sodium and fluid to prevent fluid overload, and ensuring adequate protein d/t dialysis being catabolic 2) Continue to encourage optimal PO intake 3) Continue to current plan of care Expected Outcomes/Goals: 1) appetite and labs to improve 2) f/u in 5 days CC Plasma Assessment Blood Product Administration S: [id number] OSWALDO ISAAC MD Dec 15, 2024 15:15
[2024-12-15 15:40] LABS: % Iron Saturation 18.8 % (20-55)
[2024-12-15] MEDS: CALCITRIOL 0.25 MCG CAP PO ONE (16:37)
[2024-12-15] MEDS: IRON SUCROSE COMPLEX 110 ML IV SCH (16:37)
--- NOTE | 2024-12-15 20:22 | DVHPN2 ---
Subjective In bed resting Reviewed: Care Plan Changes from previous H/P or p: No Changes Eyes: No Pain, No Vision change, No Conjunctivae inflammation, No Eyelid inflammation, No Other, No Redness ENT: No Ear pain, No Ear discharge, No Nose pain, No Nose discharge, No Nose congestion, No Mouth pain, No Mouth swelling, No Throat pain, No Throat swelling, No Other Cardiovascular: No Chest Pain, No Palpitations, No Orthopnea, No Paroxysmal Noc. Dyspnea, No Edema, No Lt Headedness, No Other Respiratory: Shortness of breath, SOB with excertion Gastrointestinal: No Nausea, No Vomiting, No Abdominal Pain, No Diarrhea, No Constipation, No Melena, No Hematochezia, No Other Genitourinary: No Dysuria, No Frequency, No Incontinence, No Hematuria, No Retention, No Other Musculoskeletal: No other, No neck pain, No shoulder pain, No arm pain, No back pain, No hand pain, No leg pain, No foot pain Skin: No Rash, No Lesions, No Jaundice, No Bruising, No Other Objective Vitals Vital Signs Date Time Temp Pulse Resp B/P (MAP) Pulse Ox O2 Delivery O2 Flow Rate FiO2 12/15/24 18:18 143/79 12/15/24 17:06 98.2 94 17 97 98.2 12/15/24 08:00 Room Air* 0 21 Intake/Output Intake and Output 12/15/24 07:00 Intake Total 1640 ml Output Total 200 ml Balance 1440 ml Intake Oral 1640 ml Output Urine Total 200 ml # Voids 3 General Appearance: Alert, Oriented X3 Lungs: Clear to auscultation Cardiovascular: Regular rate, Normal S1, Normal S2 Medications Current Medications Medications Dose Ordered Sig/Bijal Route Start Time Stop Time Status Last Admin Dose Admin Sodium Chloride 10 ml Q8HR IV 12/11/24 22:00 12/15/24 13:55 10 ML Acetaminophen/ Hydrocodone Bitart 1 tab Q4HP PRN PO 12/11/24 15:45 Ondansetron HCl 4 mg Q4HP PRN IV 12/11/24 15:45 Docusate Sodium 100 mg BIDPRN PRN PO 12/11/24 15:45 Acetaminophen 650 mg Q6HP PRN PO 12/11/24 15:45 Nitroglycerin 0.4 mg Q5MINP PRN SL 12/11/24 15:45 Morphine Sulfate 2 mg Q30M PRN IV 12/11/24 15:45 Amlodipine Besylate 10 mg BID PO 12/12/24 10:00 12/15/24 09:38 10 MG Bumetanide 2.5 mg BIDD IV 12/11/24 18:00 12/15/24 18:18 2.5 MG Hydralazine HCl 10 mg Q4HPRN PRN IV 12/12/24 12:15 12/15/24 15:10 10 MG Sevelamer HCl 800 mg TIDWM PO 12/12/24 18:00 12/15/24 18:18 800 MG Iron Sucrose 110 ml @ 110 mls/hr DAILY@1200 IV 12/15/24 15:15 12/19/24 12:59 12/15/24 16:37 110 MLS/HR Calcitriol 0.5 mcg DAILY PO 12/16/24 10:00 Laboratory Results Laboratory Tests 12/15/24 06:09 Chemistry Test 12/15/24 06:09 Calcium Level 10.3 mg/dL (8.7-10.4) Assessment/Plan Assessment/Plan #ESRD needing dialysis, #Hypertension, #Anemia, #Hyperkalemia, #Fluid overload, Continue HD monitor CBC and BMP Dispo: Pending to get HD chair before he is discharged Plan discussed with: Patient Date of Service: Dec 15, 2024 Billing Provider: FERNANDO GONZALES MD Common Visit Codes: [id number] INP/OBS CARE(HIGH) FERNANDO GONZALES MD Dec 15, 2024 20:22
[2024-12-16] VITALS (10 sets, daily range): BP systolic 147–177; BP diastolic 78–111; PULSE 84–97; RESP 17–20; TEMP 97.9–98.2; O2SAT 95–100
--- NOTE | 2024-12-16 05:57 | DVH ---
EXAM: US Duplex Left Lower Extremity Veins CLINICAL INDICATION: SWELLING TECHNIQUE: Real-time duplex ultrasound scan of the left lower extremity veins integrating B-mode two -dimensional vascular structure, Doppler spectral analysis, color flow Doppler imaging and compressio n. COMPARISON: None FINDINGS: DEEP VEINS: Unremarkable. No DVT in the visualized common femoral, femoral, proximal deep femoral or popliteal veins. The veins demonstrate normal color flow, are normally compressible, with normal phasic flow and/or augmentation response. SUPERFICIAL VEINS: Unremarkable. No thrombus in the visualized great saphenous vein. SOFT TISSUES: No acute findings. No popliteal cyst. OTHER FINDINGS: . None. IMPRESSION: No DVT.
[2024-12-16 07:31] LABS: Basophils # (auto) 0 10 ^3/uL (0-0.2); Basophils % (auto) 0.5 % (0.0-2.0); Eosinophils # (auto) 0.4 10 ^3/uL (0-0.8); Eosinophils % (auto) 5.4 % (0.0-7.0); Hematocrit 22.8 % (41.0-53.0); Hemoglobin 7.6 g/dL (13.5-17.5); Mean Corpuscular Volume 91.8 fL (80.0-100.0); Monocytes # (auto) 0.6 10 ^3/uL (0-1.3); Red Cell Distribution Width 15.2 % (11.8-14.3)
[2024-12-16 07:35] LABS: Lymphocytes # (auto) 0.9 10 ^3/uL (0.4-5.4); Lymphocytes % (auto) 12.9 % (10.0-50.0); Mean Corpuscular Hemoglobin 30.6 pg (28.0-32.0); Mean Corpuscular Hgb Conc. 33.4 g/dL (32.0-36.0); Monocytes % (auto) 8.5 % (0.0-12.0); Neutrophils # (auto) 5.2 10 ^3/uL (1.6-8.6); Neutrophils % (auto) 72.7 % (37.0-80.0); Platelet Count (auto) 262 10^3/uL (140-450); Red Blood Cells 2.49 10^6/uL (4.5-5.90); White Blood Cell 7.1 10^3/uL (4.4-10.8)
[2024-12-16 07:46] LABS: Chloride 104 mmol/L (98-107); Potassium 4.9 mmol/L (3.5-5.1); Sodium 139 mmol/L (136-145)
[2024-12-16 07:47] LABS: Anion Gap 11 (5-15); Carbon Dioxide 24 mmol/L (20-31)
[2024-12-16 07:48] LABS: Calcium 10.2 mg/dL (8.7-10.4)
[2024-12-16 07:52] LABS: Glucose 83 mg/dL (74-106)
[2024-12-16 07:53] LABS: Blood Urea Nitrogen 71 mg/dL (9-23)
[2024-12-16] MEDS: CALCITRIOL 0.25 MCG CAP PO SCH (09:00)
[2024-12-16] MEDS: SODIUM CHL 0.9% 1000 ML BAG XX ONE (11:15)
[2024-12-16 12:13] LABS: Hepatitis B Surface Antigen Negative (Negative)
[2024-12-16 12:34] LABS: Hepatitis A Ab IgM Negative
[2024-12-16 12:38] LABS: Hepatitis B Core IgM Negative (Negative); Hepatitis C Antibody Negative (Negative)
--- NOTE | 2024-12-16 14:31 | DVHPN2 ---
Subjective pending chair time Reviewed: Care Plan Changes from previous H/P or p: No Changes Eyes: No Pain, No Vision change, No Conjunctivae inflammation, No Eyelid inflammation, No Other, No Redness ENT: No Ear pain, No Ear discharge, No Nose pain, No Nose discharge, No Nose congestion, No Mouth pain, No Mouth swelling, No Throat pain, No Throat swelling, No Other Cardiovascular: No Chest Pain, No Palpitations, No Orthopnea, No Paroxysmal Noc. Dyspnea, No Edema, No Lt Headedness, No Other Respiratory: Shortness of breath, SOB with excertion Gastrointestinal: No Nausea, No Vomiting, No Abdominal Pain, No Diarrhea, No Constipation, No Melena, No Hematochezia, No Other Genitourinary: No Dysuria, No Frequency, No Incontinence, No Hematuria, No Retention, No Other Musculoskeletal: No other, No neck pain, No shoulder pain, No arm pain, No back pain, No hand pain, No leg pain, No foot pain Skin: No Rash, No Lesions, No Jaundice, No Bruising, No Other Objective Vitals Vital Signs Date Time Temp Pulse Resp B/P (MAP) Pulse Ox O2 Delivery O2 Flow Rate FiO2 12/16/24 10:00 171/111 12/16/24 09:00 98.0 90 20 97 98.0 12/16/24 08:20 Room Air* 0 21 Intake/Output Intake and Output 12/16/24 07:00 Intake Total 1260 ml Output Total 100 ml Balance 1160 ml Intake Oral 1150 ml IV Total 110 ml Output Urine Total 100 ml # Voids 4 General Appearance: Alert, Oriented X3 Lungs: Clear to auscultation Cardiovascular: Regular rate, Normal S1, Normal S2 Medications Current Medications Medications Dose Ordered Sig/Bijal Route Start Time Stop Time Status Last Admin Dose Admin Sodium Chloride 10 ml Q8HR IV 12/11/24 22:00 12/16/24 06:00 10 ML Acetaminophen/ Hydrocodone Bitart 1 tab Q4HP PRN PO 12/11/24 15:45 Ondansetron HCl 4 mg Q4HP PRN IV 12/11/24 15:45 Docusate Sodium 100 mg BIDPRN PRN PO 12/11/24 15:45 Acetaminophen 650 mg Q6HP PRN PO 12/11/24 15:45 Nitroglycerin 0.4 mg Q5MINP PRN SL 12/11/24 15:45 Morphine Sulfate 2 mg Q30M PRN IV 12/11/24 15:45 Amlodipine Besylate 10 mg BID PO 12/12/24 10:00 12/15/24 21:46 10 MG Bumetanide 2.5 mg BIDD IV 12/11/24 18:00 12/15/24 18:18 2.5 MG Hydralazine HCl 10 mg Q4HPRN PRN IV 12/12/24 12:15 12/15/24 15:10 10 MG Sevelamer HCl 800 mg TIDWM PO 12/12/24 18:00 12/16/24 12:02 800 MG Iron Sucrose 110 ml @ 110 mls/hr DAILY@1200 IV 12/15/24 15:15 12/19/24 12:59 12/16/24 12:02 110 MLS/HR Calcitriol 0.5 mcg DAILY PO 12/16/24 10:00 12/16/24 09:00 0.5 MCG Laboratory Results Laboratory Tests 12/16/24 06:39 Chemistry Test 12/16/24 06:39 Calcium Level 10.2 mg/dL (8.7-10.4) Assessment/Plan Assessment/Plan #ESRD needing dialysis, #Hypertension, #Anemia, #Hyperkalemia, #Fluid overload, Continue HD monitor CBC and BMP Dispo: Pending to get HD chair before he is discharged Plan discussed with: Patient Date of Service: Dec 16, 2024 Billing Provider: KAMALA BORJAS MD Common Visit Codes: [id number] INP/OBS CARE(MOD) KAMALA BORJAS MD Dec 16, 2024 14:31
[2024-12-16] MEDS: EPOETIN ALFA-EPBX 10,000 UNIT/1ML VIAL SC ONE (22:35)
[2024-12-17] VITALS (9 sets, daily range): BP systolic 148–164; BP diastolic 82–95; PULSE 84–98; RESP 16–20; TEMP 97.9–98.3; O2SAT 97–100
--- NOTE | 2024-12-17 14:15 | DVHPN2 ---
Subjective status quo, pending chair time for HD Reviewed: Care Plan Changes from previous H/P or p: No Changes Eyes: No Pain, No Vision change, No Conjunctivae inflammation, No Eyelid inflammation, No Other, No Redness ENT: No Ear pain, No Ear discharge, No Nose pain, No Nose discharge, No Nose congestion, No Mouth pain, No Mouth swelling, No Throat pain, No Throat swelling, No Other Cardiovascular: No Chest Pain, No Palpitations, No Orthopnea, No Paroxysmal Noc. Dyspnea, No Edema, No Lt Headedness, No Other Respiratory: Shortness of breath, SOB with excertion Gastrointestinal: No Nausea, No Vomiting, No Abdominal Pain, No Diarrhea, No Constipation, No Melena, No Hematochezia, No Other Genitourinary: No Dysuria, No Frequency, No Incontinence, No Hematuria, No Retention, No Other Musculoskeletal: No other, No neck pain, No shoulder pain, No arm pain, No back pain, No hand pain, No leg pain, No foot pain Skin: No Rash, No Lesions, No Jaundice, No Bruising, No Other Objective Vitals Vital Signs Date Time Temp Pulse Resp B/P (MAP) Pulse Ox O2 Delivery O2 Flow Rate FiO2 12/17/24 13:04 163/87 12/17/24 13:00 97.9 88 16 98 97.9 12/17/24 08:15 Room Air* 0 21 Intake/Output Intake and Output 12/17/24 07:00 Intake Total 2350 ml Balance 2350 ml Intake Oral 2240 ml IV Total 110 ml # Voids 5 General Appearance: Alert, Oriented X3 Lungs: Clear to auscultation Cardiovascular: Regular rate, Normal S1, Normal S2 Medications Current Medications Medications Dose Ordered Sig/Bijal Route Start Time Stop Time Status Last Admin Dose Admin Sodium Chloride 10 ml Q8HR IV 12/11/24 22:00 12/17/24 13:03 10 ML Acetaminophen/ Hydrocodone Bitart 1 tab Q4HP PRN PO 12/11/24 15:45 Ondansetron HCl 4 mg Q4HP PRN IV 12/11/24 15:45 Docusate Sodium 100 mg BIDPRN PRN PO 12/11/24 15:45 Acetaminophen 650 mg Q6HP PRN PO 12/11/24 15:45 Nitroglycerin 0.4 mg Q5MINP PRN SL 12/11/24 15:45 Morphine Sulfate 2 mg Q30M PRN IV 12/11/24 15:45 Amlodipine Besylate 10 mg BID PO 12/12/24 10:00 12/17/24 11:22 10 MG Bumetanide 2.5 mg BIDD IV 12/11/24 18:00 12/17/24 05:38 2.5 MG Hydralazine HCl 10 mg Q4HPRN PRN IV 12/12/24 12:15 12/17/24 13:04 10 MG Sevelamer HCl 800 mg TIDWM PO 12/12/24 18:00 12/17/24 11:21 800 MG Iron Sucrose 110 ml @ 110 mls/hr DAILY@1200 IV 12/15/24 15:15 12/19/24 12:59 12/17/24 11:23 110 MLS/HR Calcitriol 0.5 mcg DAILY PO 12/16/24 10:00 12/17/24 11:21 0.5 MCG Laboratory Results Laboratory Tests 12/16/24 06:39 Assessment/Plan Assessment/Plan #ESRD needing dialysis, #Hypertension, #Anemia, #Hyperkalemia, #Fluid overload, Continue HD monitor CBC and BMP increase oral anti htn Dispo: Pending to get HD chair before he is discharged Plan discussed with: Patient Date of Service: Dec 17, 2024 Billing Provider: KAMALA BORJAS MD Common Visit Codes: [id number] INP/OBS CARE(HIGH) KAMALA BORJAS MD Dec 17, 2024 14:15
[2024-12-17] MEDS: hydrALAZINE HCL 10 MG TAB PO SCH (21:28)
[2024-12-18] VITALS (8 sets, daily range): BP systolic 133–191; BP diastolic 82–106; PULSE 83–96; RESP 16–20; TEMP 97.6–98.2; O2SAT 95–98
--- NOTE | 2024-12-18 13:38 | DVHPN2 ---
Progress Note Date Seen: Dec 18, 2024 Medical Necessity Reason Pt with a Central, PICC or Fol: Yes Subjective Patient reports: No new complaints Other Systems: Patient seen and examined by myself today in follow-up Patient examined hemodialysis, Objective vital signs Vital Sign Date Time Temp Pulse Resp B/P (MAP) Pulse Ox O2 Delivery O2 Flow Rate FiO2 12/18/24 10:00 159/93 12/18/24 09:00 97.9 91 17 97 97.9 12/17/24 20:00 Room Air* 0 21 Total Intake and Output 12/17/24 12/17/24 12/18/24 15:00 23:00 07:00 Intake Total 110 ml 1000 ml 300 ml Balance 110 ml 1000 ml 300 ml medications Current Medications Medications Dose Ordered Sig/Bijal Route Start Time Stop Time Status Last Admin Dose Admin Sodium Chloride 10 ml Q8HR IV 12/11/24 22:00 12/18/24 05:19 10 ML Acetaminophen 650 mg Q6HP PRN PO 12/11/24 15:45 Amlodipine Besylate 10 mg BID PO 12/12/24 10:00 12/17/24 21:31 10 MG Bumetanide 2.5 mg BIDD IV 12/11/24 18:00 12/18/24 05:15 2.5 MG Hydralazine HCl 10 mg Q4HPRN PRN IV 12/12/24 12:15 12/18/24 08:39 10 MG Sevelamer HCl 800 mg TIDWM PO 12/12/24 18:00 12/18/24 12:34 800 MG Iron Sucrose 110 ml @ 110 mls/hr DAILY@1200 IV 12/15/24 15:15 12/19/24 12:59 12/18/24 12:34 110 MLS/HR Calcitriol 0.5 mcg DAILY PO 12/16/24 10:00 12/18/24 10:14 0.5 MCG Hydralazine HCl 10 mg Q8HR PO 12/17/24 22:00 12/17/24 21:28 10 MG Examination: LUNGS:Normal (Blood pressure stable), CVS:Normal, MSK:Normal laboratory and microbiology Laboratory Tests 12/16/24 06:39 Test 12/16/24 06:39 Range/Units Serum Glucose 83 74-106 mg/dL Problem List/Assessment/Plan Problem List/Assessment/Plan ESRD [place] hemodialysis- [place] of [place] Medical noncompliance Noncompliance Hypertension uncontrolled Acute hypoxic respiratory failure Anemia status post packed red secondary hyperparathyroidism recs Continue with UF 3 L as tolerated Epogen 82417 IV post hemodialysis director of food and nutrition services for chair time in [facility]-pending We will follow closely Phosphorus binders Renal diet Blood pressure control We will continue to follow Plan discussed with: Patient Dietary Evaluation Review Comments: 1) Refer to outpatient RD to senior vice president & general counsel on renal diet and importance of limiting sodium and fluid to prevent fluid overload, and ensuring adequate protein d/t dialysis being catabolic 2) Continue to encourage optimal PO intake 3) Continue to current plan of care Expected Outcomes/Goals: 1) appetite and labs to improve 2) f/u in 5 days CC Plasma Assessment Blood Product Administration S: [id number] REESE JOHNS MD Dec 18, 2024 13:38
[2024-12-18] MEDS ORDERED: SODIUM CHL 0.9% 1000 ML BAG XX ONE (13:45)
[2024-12-18 14:37] LABS: Hematocrit 23.1 % (41.0-53.0); Hemoglobin 7.8 g/dL (13.5-17.5)
--- NOTE | 2024-12-18 15:24 | DVHPN2 ---
Subjective status quo, pending chair time for HD Reviewed: Care Plan Changes from previous H/P or p: No Changes Eyes: No Pain, No Vision change, No Conjunctivae inflammation, No Eyelid inflammation, No Other, No Redness ENT: No Ear pain, No Ear discharge, No Nose pain, No Nose discharge, No Nose congestion, No Mouth pain, No Mouth swelling, No Throat pain, No Throat swelling, No Other Cardiovascular: No Chest Pain, No Palpitations, No Orthopnea, No Paroxysmal Noc. Dyspnea, No Edema, No Lt Headedness, No Other Respiratory: Shortness of breath, SOB with excertion Gastrointestinal: No Nausea, No Vomiting, No Abdominal Pain, No Diarrhea, No Constipation, No Melena, No Hematochezia, No Other Genitourinary: No Dysuria, No Frequency, No Incontinence, No Hematuria, No Retention, No Other Musculoskeletal: No other, No neck pain, No shoulder pain, No arm pain, No back pain, No hand pain, No leg pain, No foot pain Skin: No Rash, No Lesions, No Jaundice, No Bruising, No Other Objective Vitals Vital Signs Date Time Temp Pulse Resp B/P (MAP) Pulse Ox O2 Delivery O2 Flow Rate FiO2 12/18/24 14:00 171/95 12/18/24 13:00 98.2 84 17 97 98.2 12/18/24 08:00 Room Air* 0 21 Intake/Output Intake and Output 12/18/24 07:00 Intake Total 1410 ml Balance 1410 ml Intake Oral 1300 ml IV Total 110 ml # Voids 4 # Bowel Movements 2 General Appearance: Alert, Oriented X3 Lungs: Clear to auscultation Cardiovascular: Regular rate, Normal S1, Normal S2 Medications Current Medications Medications Dose Ordered Sig/Bijal Route Start Time Stop Time Status Last Admin Dose Admin Sodium Chloride 10 ml Q8HR IV 12/11/24 22:00 12/18/24 05:19 10 ML Acetaminophen 650 mg Q6HP PRN PO 12/11/24 15:45 Amlodipine Besylate 10 mg BID PO 12/12/24 10:00 12/17/24 21:31 10 MG Bumetanide 2.5 mg BIDD IV 12/11/24 18:00 12/18/24 05:15 2.5 MG Hydralazine HCl 10 mg Q4HPRN PRN IV 12/12/24 12:15 12/18/24 08:39 10 MG Sevelamer HCl 800 mg TIDWM PO 12/12/24 18:00 12/18/24 12:34 800 MG Iron Sucrose 110 ml @ 110 mls/hr DAILY@1200 IV 12/15/24 15:15 12/19/24 12:59 12/18/24 12:34 110 MLS/HR Calcitriol 0.5 mcg DAILY PO 12/16/24 10:00 12/18/24 10:14 0.5 MCG Hydralazine HCl 10 mg Q8HR PO 12/17/24 22:00 12/17/24 21:28 10 MG Laboratory Results Laboratory Tests 12/16/24 06:39 12/18/24 14:30 Assessment/Plan Assessment/Plan #ESRD needing dialysis, #Hypertension, #Anemia, #Hyperkalemia, #Fluid overload, Continue HD monitor CBC and BMP increase oral anti htn Dispo: Pending to get HD chair before he is discharged Plan discussed with: Patient My Orders Orders - KAMALA BORJAS MD Procedure Category Date Status Time February Shower RIANNA 12/17/24 In Process 16:18 Date of Service: Dec 18, 2024 Billing Provider: KAMALA BORJAS MD Common Visit Codes: [id number] INP/OBS CARE(MOD) KAMALA BORJAS MD Dec 18, 2024 15:24
[2024-12-18] MEDS: EPOETIN ALFA-EPBX 10,000 UNIT/1ML VIAL SC ONE (21:02)
[2024-12-19] VITALS (8 sets, daily range): BP systolic 147–172; BP diastolic 88–104; PULSE 82–98; RESP 16–20; TEMP 98.3–99; O2SAT 93–100
--- NOTE | 2024-12-19 13:00 | DVHPN2 ---
Progress Note Date Seen: Dec 19, 2024 Medical Necessity Reason Pt with a Central, PICC or Fol: Yes Subjective Patient reports: No new complaints Other Systems: Patient seen and examined by myself today in follow-up Objective vital signs Vital Sign Date Time Temp Pulse Resp B/P (MAP) Pulse Ox O2 Delivery O2 Flow Rate FiO2 12/19/24 09:53 147/88 12/19/24 09:00 98.4 89 18 95 98.4 12/19/24 08:00 Room Air* 0 21 Total Intake and Output 12/18/24 12/18/24 12/19/24 15:00 23:00 07:00 Intake Total 110 ml 400 ml 480 ml Balance 110 ml 400 ml 480 ml medications Current Medications Medications Dose Ordered Sig/Bijal Route Start Time Stop Time Status Last Admin Dose Admin Sodium Chloride 10 ml Q8HR IV 12/11/24 22:00 12/18/24 20:53 10 ML Acetaminophen 650 mg Q6HP PRN PO 12/11/24 15:45 Amlodipine Besylate 10 mg BID PO 12/12/24 10:00 12/19/24 09:53 10 MG Bumetanide 2.5 mg BIDD IV 12/11/24 18:00 12/18/24 05:15 2.5 MG Hydralazine HCl 10 mg Q4HPRN PRN IV 12/12/24 12:15 12/18/24 08:39 10 MG Sevelamer HCl 800 mg TIDWM PO 12/12/24 18:00 12/19/24 08:24 800 MG Iron Sucrose 110 ml @ 110 mls/hr DAILY@1200 IV 12/15/24 15:15 12/19/24 12:59 12/18/24 12:34 110 MLS/HR Calcitriol 0.5 mcg DAILY PO 12/16/24 10:00 12/19/24 09:52 0.5 MCG Hydralazine HCl 10 mg Q8HR PO 12/17/24 22:00 12/19/24 05:28 10 MG Examination: LUNGS:Normal, CVS:Normal, MSK:Normal laboratory and microbiology Laboratory Tests 12/18/24 14:30 12/16/24 06:39 Test 12/16/24 06:39 Range/Units Serum Glucose 83 74-106 mg/dL Problem List/Assessment/Plan Problem List/Assessment/Plan ESRD on hemodialysis- from [place] Medical noncompliance Noncompliance Hypertension uncontrolled Acute hypoxic respiratory failure Anemia status post packed red secondary hyperparathyroidism Recommendations Hemodialysis tomorrow Epogen 87697 IV post hemodialysis director of volunteer services for chair time in [facility]-pending insurance approval We will follow closely Phosphorus binders Renal diet Blood pressure control We will continue to follow Plan discussed with: Patient My Orders My Orders Orders - REESE JOHNS MD Procedure Category Date Status Time Hemodialysis Orders ORDERS 12/18/24 Transmitted 13:40 Dialysis Nursing RIANNA 12/18/24 In Process Message 13:40 Document Fluid Input RIANNA 12/18/24 In Process And Outpu 13:40 Dietary Evaluation Review Comments: 1) Refer to outpatient RD to membership counselor on renal diet and importance of limiting sodium and fluid to prevent fluid overload, and ensuring adequate protein d/t dialysis being catabolic 2) Continue to encourage optimal PO intake 3) Continue to current plan of care Expected Outcomes/Goals: 1) appetite and labs to improve 2) f/u in 5 days CC Plasma Assessment Blood Product Administration S: [id number] REESE JOHNS MD Dec 19, 2024 13:00
--- NOTE | 2024-12-19 15:48 | DVHPN2 ---
Subjective status quo, pending chair time for HD. patient wants to leave AMA, however decided to stay and get HD tomorrow. discussed with patient >30 minutes regarding need to get dialysis chair time Reviewed: Care Plan Changes from previous H/P or p: No Changes Eyes: No Pain, No Vision change, No Conjunctivae inflammation, No Eyelid inflammation, No Other, No Redness ENT: No Ear pain, No Ear discharge, No Nose pain, No Nose discharge, No Nose congestion, No Mouth pain, No Mouth swelling, No Throat pain, No Throat swelling, No Other Cardiovascular: No Chest Pain, No Palpitations, No Orthopnea, No Paroxysmal Noc. Dyspnea, No Edema, No Lt Headedness, No Other Respiratory: Shortness of breath, SOB with excertion Gastrointestinal: No Nausea, No Vomiting, No Abdominal Pain, No Diarrhea, No Constipation, No Melena, No Hematochezia, No Other Genitourinary: No Dysuria, No Frequency, No Incontinence, No Hematuria, No Retention, No Other Musculoskeletal: No other, No neck pain, No shoulder pain, No arm pain, No back pain, No hand pain, No leg pain, No foot pain Skin: No Rash, No Lesions, No Jaundice, No Bruising, No Other Objective Vitals Vital Signs Date Time Temp Pulse Resp B/P (MAP) Pulse Ox O2 Delivery O2 Flow Rate FiO2 12/19/24 13:42 165/98 12/19/24 13:00 98.4 88 16 95 98.4 12/19/24 08:00 Room Air* 0 21 Intake/Output Intake and Output 12/19/24 07:00 Intake Total 990 ml Balance 990 ml Intake Oral 880 ml IV Total 110 ml # Voids 6 # Bowel Movements 1 General Appearance: Alert, Oriented X3 Lungs: Clear to auscultation Cardiovascular: Regular rate, Normal S1, Normal S2 Medications Current Medications Medications Dose Ordered Sig/Bijal Route Start Time Stop Time Status Last Admin Dose Admin Sodium Chloride 10 ml Q8HR IV 12/11/24 22:00 12/18/24 20:53 10 ML Acetaminophen 650 mg Q6HP PRN PO 12/11/24 15:45 Amlodipine Besylate 10 mg BID PO 12/12/24 10:00 12/19/24 09:53 10 MG Bumetanide 2.5 mg BIDD IV 12/11/24 18:00 12/18/24 05:15 2.5 MG Hydralazine HCl 10 mg Q4HPRN PRN IV 12/12/24 12:15 12/18/24 08:39 10 MG Sevelamer HCl 800 mg TIDWM PO 12/12/24 18:00 12/19/24 13:41 800 MG Calcitriol 0.5 mcg DAILY PO 12/16/24 10:00 12/19/24 09:52 0.5 MCG Hydralazine HCl 10 mg Q8HR PO 12/17/24 22:00 12/19/24 13:42 10 MG Laboratory Results Laboratory Tests 12/16/24 06:39 12/18/24 14:30 Assessment/Plan Assessment/Plan #ESRD needing dialysis, #Hypertension, #Anemia, #Hyperkalemia, #Fluid overload, Continue HD monitor CBC and BMP increase oral anti htn Dispo: Pending to get HD chair before he is discharged Plan discussed with: Patient Date of Service: Dec 19, 2024 Billing Provider: KAMALA BORJAS MD Common Visit Codes: [id number] INP/OBS CARE(MOD), [id number]/OBS SAME DATE (MOD) KAMALA BORJAS MD Dec 19, 2024 15:48
[2024-12-20 00:14] VITALS: BP 164/88; PULSE 94; RESP 18; TEMP 98.3; O2SAT 98
[2024-12-20] MEDS: hydrALAZINE HCL 25 MG TAB PO ONE (00:28)
[2024-12-20 01:00] VITALS: BP 144/83; PULSE 86; RESP 19; TEMP 98; O2SAT 97
[2024-12-20 05:00] VITALS: BP 144/83; PULSE 86; RESP 19; TEMP 98; O2SAT 97
[2024-12-20] MEDS ORDERED: SODIUM CHL 0.9% 1000 ML BAG XX ONE (07:00)
[2024-12-20 08:00] VITALS: PULSE 101; PULSE 89; RESP 18; O2SAT 97
[2024-12-20 09:00] VITALS: BP 150/90; PULSE 89; RESP 18; TEMP 98; O2SAT 97
[2024-12-20 12:41] VITALS: BP 179/98; PULSE 91; RESP 16; TEMP 98.1; O2SAT 95
--- NOTE | 2024-12-20 13:26 | DVHPN2 ---
Progress Note - Dictate Date Seen: Dec 20, 2024 Medical Necessity Reason Pt with a Central, PICC or Fol: Yes Subjective Denies dyspnea vital signs Vital Sign Date Time Temp Pulse Resp B/P (MAP) Pulse Ox O2 Delivery O2 Flow Rate FiO2 12/20/24 12:41 98.1 91 16 179/98 (125) 95 98.1 12/20/24 08:00 Room Air* 0 21 Total Intake and Output 12/19/24 12/19/24 12/20/24 15:00 23:00 07:00 Intake Total 800 ml 100 ml Balance 800 ml 100 ml medications Current Medications Medications Dose Ordered Sig/Bijal Route Start Time Stop Time Status Last Admin Dose Admin Sodium Chloride 10 ml Q8HR IV 12/11/24 22:00 12/18/24 20:53 10 ML Acetaminophen 650 mg Q6HP PRN PO 12/11/24 15:45 Amlodipine Besylate 10 mg BID PO 12/12/24 10:00 12/19/24 20:09 10 MG Bumetanide 2.5 mg BIDD IV 12/11/24 18:00 12/18/24 05:15 2.5 MG Hydralazine HCl 10 mg Q4HPRN PRN IV 12/12/24 12:15 12/18/24 08:39 10 MG Sevelamer HCl 800 mg TIDWM PO 12/12/24 18:00 12/20/24 08:46 800 MG Calcitriol 0.5 mcg DAILY PO 12/16/24 10:00 12/20/24 10:47 0.5 MCG Hydralazine HCl 10 mg Q8HR PO 12/17/24 22:00 12/19/24 20:10 10 MG objective Gen: nad heent: nc/at, mmm lungs: cta anteriorly cvs: no rub abd: soft, bowel sounds audible ext: no edema laboratory and microbiology Laboratory Tests 12/18/24 14:30 12/16/24 06:39 Test 12/16/24 06:39 Range/Units Serum Glucose 83 74-106 mg/dL Assessment/Plan Problem List/Assessment/Plan [place]D [place] hemodialysis- [place] Medical noncompliance Noncompliance Hypertension uncontrolled Acute hypoxic respiratory failure Anemia status post packed red secondary hyperparathyroidism Recommendations Plan for dialysis today, ultrafiltration as tolerated Awaiting outpatient dialysis chair time. Dietary Evaluation Review Comments: 1) Refer to outpatient RD to adolescent counselor on renal diet and importance of limiting sodium and fluid to prevent fluid overload, and ensuring adequate protein d/t dialysis being catabolic 2) Continue to encourage optimal PO intake 3) Continue to current plan of care Expected Outcomes/Goals: 1) appetite and labs to improve 2) f/u in 5 days Plan discussed with: Other CC Plasma Assessment Blood Product Administration S: 2058 JOHN MALDONADO MD Dec 20, 2024 13:26
--- NOTE | 2024-12-20 16:37 | DVHDS2 ---
Discharge Summary Date of Admission Dec 11, 2024 at 15:38 Date of Discharge: Dec 20, 2024 Labs/Diagnostic Data: Laboratory Results Test 12/18/24 14:30 12/16/24 06:39 12/15/24 06:09 12/12/24 05:23 Hemoglobin 7.8 g/dL (13.5-17.5) Hematocrit 23.1 % (41.0-53.0) White Blood Count 7.1 10^3/uL (4.4-10.8) Red Blood Count 2.49 10^6/uL (4.5-5.90) Mean Corpuscular Volume 91.8 fL (80.0-100.0) Mean Corpuscular Hemoglobin 30.6 pg (28.0-32.0) Mean Corpuscular Hemoglobin Concent 33.4 g/dL (32.0-36.0) Red Cell Distribution Width 15.2 % (11.8-14.3) Platelet Count 262 10^3/uL (140-450) Mean Platelet Volume 8.1 fL (6.9-10.8) Neutrophils (%) (Auto) 72.7 % (37.0-80.0) Lymphocytes (%) (Auto) 12.9 % (10.0-50.0) Monocytes (%) (Auto) 8.5 % (0.0-12.0) Eosinophils (%) (Auto) 5.4 % (0.0-7.0) Basophils (%) (Auto) 0.5 % (0.0-2.0) Neutrophils # (Auto) 5.2 10 ^3/uL (1.6-8.6) Lymphocytes # (Auto) 0.9 10 ^3/uL (0.4-5.4) Monocytes # (Auto) 0.6 10 ^3/uL (0-1.3) Eosinophils # (Auto) 0.4 10 ^3/uL (0-0.8) Basophils # (Auto) 0 10 ^3/uL (0-0.2) Nucleated Red Blood Cells 0.0 % Sodium Level 139 mmol/L (136-145) Potassium Level 4.9 mmol/L (3.5-5.1) Chloride Level 104 mmol/L (98-107) Carbon Dioxide Level 24 mmol/L (20-31) Anion Gap 11 (5-15) Blood Urea Nitrogen 71 mg/dL (9-23) Creatinine 14.33 mg/dL (0.700-1.30) Glomerular Filtration Rate Calc 4 mL/min (>90) BUN/Creatinine Ratio 5.0 (10.0-20.0) Serum Glucose 83 mg/dL (74-106) Calcium Level 10.2 mg/dL (8.7-10.4) Hepatitis A IgM Antibody Negative Hepatitis B Surface Antigen Negative (Negative) Hepatitis B Core IgM Antibody Negative (Negative) Hepatitis C Antibody Negative (Negative) Iron Level 48 ug/dL (65-175) Total Iron Binding Capacity 256 ug/dL (250-425) Percent Iron Saturation 18.8 % (20-55) Phosphorus Level 5.8 mg/dL (2.4-5.1) Magnesium Level 2.1 mg/dL (1.6-2.6) Total Bilirubin 0.5 mg/dL (0.2-1.0) Aspartate Amino Transferase (AST) < 8 U/L (13-40) Alanine Aminotransferase (ALT) < 9 U/L (7-40) Alkaline Phosphatase 84 U/L (46-116) Total Protein 6.4 g/dL (5.7-8.2) Albumin 4.3 g/dL (3.2-4.8) Vitamin D 25-Hydroxy 31.5 ng/mL (30.0-100) Parathyroid Hormone (Intact) 1351.8 pg/mL (18.4-80.1) Hepatitis B Surface Antibody Negative (Negative) Test 12/11/24 11:40 Platelet Estimate Adequate Other Laboratory Tests 12/18/24 14:30 12/16/24 06:39 Brief Hx & Hospital Course: 39 yo M with HTN, ESRD on HD MWF from [place] admitted for SOB and fatigue after HD, doesnt have outpatient HD in here. HD since 1 month. Patient was seen by nephro and started with routine HD here. SS consult for insurance and chairtime. Patient however left AMA before chair time could be arranged, discussed with patient with risk and benefit however he stated he would not wait in hospital and will jsut return if he is worst. i informed the patient that since he is requiring regular HD, he would need to wait for chair time. he understands the risk of worsening SOB, cardiac arrest, permanent disability or . he left AMA. Condition at Discharge: Stable Final Diagnosis/Problems List #ESRD needing dialysis, #Hypertension, #Anemia, #Hyperkalemia, #Fluid overload, Discharge Disposition: AMA 39 Discharge Statement: "Patient was advised to return to the ER or call 911 if any headaches, dizziness, shortness of breath, chest pain, abdominal pain, bleeding, fevers, or worsening of medical condition. Patient was counseled about treatment plan, medications, possible side effects, patientverbalized understanding. All questions were answered to the best of my ability. This discharge took greater then 30 minutes in planning, reviewing documentation, counseling the patient, and discussing with other team members." ASSESSMENT ASSESSMENT Assessment Date of Service: Dec 20, 2024 Billing Provider: KAMALA BORJAS MD Common Visit Codes: [id number] DISCH DAY >30min KAMALA BORJAS MD Dec 20, 2024 16:36
[2024-12-20] MEDS ORDERED: EPOETIN ALFA-EPBX 10,000 UNIT/1ML VIAL SC ONE (21:00)
== END 2024-12-20 17:00 | disposition left against medical advice (07) | DRG 425 ==
LOC: ER 10:38 → OVERFLOW 15:38 → TELE-WESTW 22:15
PROVIDERS: ADMIT Student in an Organized Health Care Education/Training Program; ATTEND Student in an Organized Health Care Education/Training Program
PROC: 30233N1 Transfusion of Nonautologous Red Blood Cells into Peripheral Vein, Percutaneous Approach (ICD-10-PCS; principal; 2024-12-11)
PROC: 5A1D70Z Performance of Urinary Filtration, Intermittent, Less than 6 Hours Per Day (ICD-10-PCS; 2024-12-11)
PROC: 5A1D70Z Performance of Urinary Filtration, Intermittent, Less than 6 Hours Per Day (ICD-10-PCS; 2024-12-12)
PROC: 5A1D70Z Performance of Urinary Filtration, Intermittent, Less than 6 Hours Per Day (ICD-10-PCS; 2024-12-13)
PROC: 5A1D70Z Performance of Urinary Filtration, Intermittent, Less than 6 Hours Per Day (ICD-10-PCS; 2024-12-16)
PROC: 5A1D70Z Performance of Urinary Filtration, Intermittent, Less than 6 Hours Per Day (ICD-10-PCS; 2024-12-18)
DX: E87.70 Fluid overload, unspecified (principal); J96.01 Acute respiratory failure with hypoxia; I12.0 Hypertensive chronic kidney disease with stage 5 chronic kidney disease or end stage renal disease; N18.6 End stage renal disease; J81.1 Chronic pulmonary edema; N25.81 Secondary hyperparathyroidism of renal origin; D64.9 Anemia, unspecified; Z99.2 Dependence on renal dialysis; E66.9 Obesity, unspecified; Z68.30 Body mass index [BMI] 30.0-30.9, adult; E87.5 Hyperkalemia; Z53.29 Procedure and treatment not carried out because of patient's decision for other reasons; Z91.199 Patient's noncompliance with other medical treatment and regimen due to unspecified reason; Z88.0 Allergy status to penicillin
CPT/HCPCS: 36415; 71046; 80048; 80053; 80074; 82306; 83540; 83550; 83735; 83970; 84100; 85014; 85018; 85025; 86705; 86706; 86803; 86850; 86900; 86901; 86920; 87340; 90935; 93005; 93971; 96372; 96374; G0378; J1642; J1756

== ENCOUNTER 2024-12-24 13:02 | Inpatient (IN) | payer MEDICAID ==
[~2024-12-24] VITALS: Ht 167.6 cm; Wt 86.0 kg
[~2024-12-24 13:02] MED LIST: AMLO1TAB23 PO
[2024-12-24 13:30] VITALS: BP 170/99; RESP 18; TEMP 98.4; O2SAT 100
[2024-12-24 14:05] VITALS: PULSE 93
--- NOTE | 2024-12-24 14:10 | ECG ---
[facility] Test Date: 2024-12-24 Test Time: 14:05:44 Pat Name: MARIO ARZATEDepartment: ED Room: [address] [place] [address] Gender: M Food Beverage Manager: MR AMBRIZB: 1985 Requested By: TAMY HAGAN Order Number: [id number] Reading MD: Oliver Gaytan Measurements Intervals [place] Rate: 93 P: 72 DC: 182 QRS: 52 QRSD: 102 T: 89 QT: 373 QTc: 464 Interpretive Statements Sinus rhythm Left ventricular hypertrophy ST elev, probable normal early repol pattern Baseline wander in lead(s) V3 Electronically Signed On 12-25-2024 22:38:57 PDT by Oliver Gaytan Please click the below link to view image of tracing.
--- NOTE | 2024-12-24 14:50 | ED.PDOC ---
SOB-HPI HPI Comments 39 y/o M, with PMHX of CKF and HTN presents to the ED for CC of shortness of breath. Patient states, that he has been experiencing shortness of breath x1day. Patient relays, that he receives dialysis on ,, and was unable to receive treatment yesterday. Patient comments, "i feel as if i have a lot of fluid build up". Patient states, that he recently moved from [place] and his first dialysis treatment was on Monday (12/20/24); patient currently does not have a nephrologists or dialysis treatment center. Patient complains or shortness of breath worsening when lying down. Patient denies fever, chills, chest pain, or N/V/D. No other symptoms or modifying factors at this time. Chief Complaint: Shortness of Breath Time Seen by MD: 14:40 Primary Care Provider: NONE Reviewed notes: Nurses Notes, Medications, Allergies Information Source: Patient Mode of Arrival: Ambulatory Severity: Moderate Timing: Days Duration: Since onset History of: None Prehospital treatment: None Modifying Factors: Nothing Associated Signs and Symptoms: None Past Medical History PAST MEDICAL HISTORY: CKF, HTN Surgical History: Denies all surgeries Family History Family History: Reviewed,noncontributory to illness Social History Smoker: Non-Smoker Alcohol: Denies ETOH Use Drugs: Denies Drug Use Lives In: Home Constitutional: denies: chills, diaphoresis, fatigue, fever, malaise, sweats, weakness, others EENTM: denies: blurred vision, double vision, ear bleeding, ear discharge, ear drainage, ear pain, ear ringing, eye pain, eye redness, hearing loss, mouth pain, mouth swelling, nasal discharge, nose bleeding, nose congestion, nose pain, photophobia, tearing, throat pain, throat swelling, voice changes, others Respiratory: reports: shortness of breath; denies: cough, hemoptysis, orthopnea, SOB at rest, SOB with excertion, stridor, wheezing, others Cardiovascular: denies: chest pain, dizzy spells, diaphoresis, Dyspnea on exertion, edema, irregular heart beat, left arm pain, lightheadedness, palpitations, PND, syncope, others Gastrointestinal: denies: abdomen distended, abdominal pain, blood streaked bowels, constipated, diarrhea, dysphagia, difficulty swallowing, hematemesis, melena, nausea, poor appetite, poor fluid intake, rectal bleeding, rectal pain, vomiting, others Genitourinary: denies: burning, dysuria, flank pain, frequency, hematuria, incontinence, penile discharge, penile sore, pain, testicle pain, testicle swelling, urgency, others Neurological: denies: dizziness, fainting, headache, left sided numbness, left sided weakness, numbness, paresthesia, pre-existing deficit, right sided numbness, right sided weakness, seizure, speech problems, tingling, tremors, weakness, others Musculoskeletal: denies: back pain, gout, joint pain, joint swelling, muscle pain, muscle stiffness, neck pain, others Integumetry: denies: bruises, change in color, change in hair/nails, dryness, laceration, lesions, lumps, rash, wounds, others Allergic/Immunocompromised: denies: Difficulty Healing, Frequent Infections, Hives, Itching, others Hematologic/Lymphatic: denies: anemia, blood clots, easy bleeding, easy bruising, swollen glands, others Endocrine: denies: excessive hunger, excessive sweating, excessive thirst, excessive urination, flushing, intolerance to cold, intolerance to heat, unexplained weight gain, unexplained weight loss, others Psychiatric: denies: anxiety, bipolar disorder, depression, hopeless, panic disorder, schizophrenia, sleepless, suicidal, others All Other Systems: Reviewed and Negative Physical Exam General Appearance: Moderate Distress HEENT: Normal ENT Inspection, Pharynx Normal, TMs Normal Neck: Full Range of Motion, Non-Tender, Normal, Normal Inspection Respiratory: Chest Non-Tender, Decreased Breath Sounds, No Accessory Muscle Use, Rales, Respiratory Distress Cardiovascular: No Edema, No JVD, No Murmur, No Gallop, Normal Peripheral Pulses, Regular Rate/Rhythm Breast Exam: Deferred Gastrointestinal: No Organomegaly, Non Tender, No Pulsatile Mass, Normal Bowel Sounds, Soft Genitalia: Deferred Pelvic: Deferred Rectal: Deferred Extremities: No calf tenderness, Normal capillary refill, Normal inspection, Normal range of motion, Non-tender, No pedal edema Musculoskeletal : Apperance: Normal Neurologic: Alert, body press operator II-XII nml as Tested, Motor Weakness, Normal Affect, Normal Mood, No Sensory Deficits Cerebellar Function: Normal Reflexes: Normal Skin: Dry, Normal Color, Warm Lymphatic: No Adenopathy Was a procedure done? Was a procedure done?: No Differential Dx Differential Diagnosis: Anxiety, Bronchitis, CHF, Sinusitis, Pharyngitis, URI X-Ray, Labs, Meds, VS Vital Signs Date Time Temp Pulse Resp B/P (MAP) Pulse Ox O2 Delivery O2 Flow Rate FiO2 12/24/24 14:05 93 12/24/24 13:30 98.4 92 18 170/99 (122) 100 98.4 Lab Test 12/24/24 15:12 Range/Units White Blood Count 8.3 4.4-10.8 10^3/uL Red Blood Count 2.60 L 4.5-5.90 10^6/uL Hemoglobin 8.1 L 13.5-17.5 g/dL Hematocrit 24.1 L 41.0-53.0 % Mean Corpuscular Volume 92.8 80.0-100.0 fL Mean Corpuscular Hemoglobin 31.0 28.0-32.0 pg Mean Corpuscular Hemoglobin Concent 33.4 32.0-36.0 g/dL Red Cell Distribution Width 16.0 H 11.8-14.3 % Platelet Count 277 140-450 10^3/uL Mean Platelet Volume 7.3 6.9-10.8 fL Neutrophils (%) (Auto) 80.6 H 37.0-80.0 % Lymphocytes (%) (Auto) 10.0 10.0-50.0 % Monocytes (%) (Auto) 7.2 0.0-12.0 % Eosinophils (%) (Auto) 1.8 0.0-7.0 % Basophils (%) (Auto) 0.4 0.0-2.0 % Neutrophils # (Auto) 6.7 1.6-8.6 10 ^3/uL Lymphocytes # (Auto) 0.8 0.4-5.4 10 ^3/uL Monocytes # (Auto) 0.6 0-1.3 10 ^3/uL Eosinophils # (Auto) 0.2 0-0.8 10 ^3/uL Basophils # (Auto) 0 0-0.2 10 ^3/uL Nucleated Red Blood Cells 0.0 % Sodium Level 138 136-145 mmol/L Potassium Level 5.6 *H 3.5-5.1 mmol/L Chloride Level 104 98-107 mmol/L Carbon Dioxide Level 21 20-31 mmol/L Anion Gap 13 5-15 Blood Urea Nitrogen 96 *H 9-23 mg/dL Creatinine 16.56 *H 0.700-1.30 mg/dL Glomerular Filtration Rate Calc 3 >90 mL/min BUN/Creatinine Ratio 5.8 L 10.0-20.0 Serum Glucose 77 74-106 mg/dL Calcium Level 9.9 8.7-10.4 mg/dL B-Type Natriuretic Peptide 1782.12 0-100 pg/mL Chest x-ray shows: IMPRESSION: Borderline cardiomegaly with minimal residual CHF/pneumonia. The patient's CBC shows anemia with a hemoglobin of 8.1 and hematocrit of 24.1 The chemistry panel shows a potassium of 5.6 The BUN is 96 and the creatinine is 16.56 The BNP is also elevated at 17 82.12 At this time, the patient was being admitted to the hospitalist The patient was given calcium, sodium bicarbonate, dextrose and insulin IV for the acute renal failure The patient was being admitted A nephrology consult is being obtained. Images Reviewed?: Images reviewed and evaluated by me Time of 1ST Reevaluation: 15:10 Reevaluation 1ST: Unchanged Time of 2ND Reevaluation: 16:40 Reevaluation 2ND: Unchanged Patient Education/Counseling: Diagnosis, Treatment, Prognosis Family Education/Counseling: No Family Present Departure 1 Departure Time of Disposition: 16:39 Impression: Primary Impression: ESRD needing dialysis Additional Impressions: Hyperkalemia Pulmonary edema Qualified Codes: J81.0 - Acute pulmonary edema Disposition: 09 ADMITTED INPATIENT [facility]mit to: [facility] Condition: Fair Critical Care Note Critical Care Time?: Yes (45 min-critical care time only) Stability Stability form required: Yes Unstable for transfer: Telemetry monitoring (Telemetry monitoring required), ED Physician Assesment (Clinical assesment) Heart Score Heart Score: Heart Score Response (Comments) Value History N/A 0 EKG N/A 0 Age N/A 0 Risk Factors N/A 0 Troponin N/A 0 Total 0 I personally scribed for TAMY HAGAN MD ([email or web address]) on 12/24/24 at 14:49. Electronically submitted by Alma Gutierrez ([email or web address]). TAMY HAGAN MD Dec 24, 2024 14:49
[2024-12-24 15:23] LABS: Basophils # (auto) 0 10 ^3/uL (0-0.2); Basophils % (auto) 0.4 % (0.0-2.0); Eosinophils # (auto) 0.2 10 ^3/uL (0-0.8); Eosinophils % (auto) 1.8 % (0.0-7.0); Hematocrit 24.1 % (41.0-53.0); Hemoglobin 8.1 g/dL (13.5-17.5); Lymphocytes # (auto) 0.8 10 ^3/uL (0.4-5.4); Mean Corpuscular Hgb Conc. 33.4 g/dL (32.0-36.0); Mean Corpuscular Volume 92.8 fL (80.0-100.0); Monocytes # (auto) 0.6 10 ^3/uL (0-1.3); Monocytes % (auto) 7.2 % (0.0-12.0); Neutrophils # (auto) 6.7 10 ^3/uL (1.6-8.6); Neutrophils % (auto) 80.6 % (37.0-80.0); Platelet Count (auto) 277 10^3/uL (140-450); White Blood Cell 8.3 10^3/uL (4.4-10.8)
[2024-12-24 15:29] LABS: Chloride 104 mmol/L (98-107); Sodium 138 mmol/L (136-145)
[2024-12-24 15:30] LABS: Anion Gap 13 (5-15); Carbon Dioxide 21 mmol/L (20-31)
--- NOTE | 2024-12-24 15:30 | DVH ---
XY CHEST TWO VIEWS ROUTINE CLINICAL HISTORY: sob COMPARISON: XY CHEST TWO VIEWS ROUTINE on DOS: 12/11/24 TECHNIQUE: Frontal and lateral view of the chest was obtained FINDINGS: Lines and Tubes: Right IJ approach hemodialysis catheter terminating over the mid SVC. Lungs: No focal consolidation. Perihilar fullness with residual hazy opacification of bilateral mid t o lower lung zone. Pleura: No effusion. No pneumothorax. Cardiomediastinal contours:Borderline cardiomegaly. Bones: No acute osseous abnormality. IMPRESSION: Borderline cardiomegaly with minimal residual CHF/pneumonia.
[2024-12-24 15:31] LABS: Calcium 9.9 mg/dL (8.7-10.4)
[2024-12-24 15:35] LABS: BUN/Creatinine Ratio 5.8 (10.0-20.0); Glucose 77 mg/dL (74-106)
[2024-12-24 15:42] LABS: Blood Urea Nitrogen 96 mg/dL (9-23); Potassium 5.6 mmol/L (3.5-5.1)
[2024-12-24] MEDS ORDERED: SODIUM BICARB 8.4% 50Meq/50ml SYR Vial IV ONE (16:15)
[2024-12-24] MEDS ORDERED: CALCIUM GLUC 1,000mg/50ml-NS 50 ML IV ONE (16:15)
[2024-12-24] MEDS ORDERED: InsuLIN REG 1unit/0.01ml Soln (100units/ml) IV ONE (16:15)
[2024-12-24] MEDS ORDERED: DEXTROSE (50%) 50ML SYRG IV ONE (16:15)
[2024-12-24] MEDS ORDERED: ONDANSETRON HCL 4 MG/2 ML VIAL IV PRN (19:15)
[2024-12-24] MEDS ORDERED: ACETAMINOPHEN 325 MG TAB PO PRN (19:15)
[2024-12-24] MEDS ORDERED: hydrALAZINE HCL 20 MG/ML VL IV PRN (19:15)
[2024-12-24] MEDS ORDERED: NITROGLYCERIN 0.4 MG SL TAB SL PRN (19:15)
[2024-12-24] MEDS ORDERED: MORPHINE SULFATE INJ 2 MG/ml SYRG IV PRN (19:15)
--- NOTE | 2024-12-24 20:31 | DVHHP2 ---
History of Present Illness Reason for Visit: Needing dialysis. History of Present Illness 39-year-old male presents for evaluation of shortness for breath. Patient reports not being dialyzed this week. He was admitted a week and a half ago and left before being dialyzed. Today he returns with worsening shortness for breath and chest pressure. Past Medical History End-stage renal disease, hypertension Past Surgical History Dialysis access Family History Noncontributory Smoke: No ALCOHOL: none Drugs: None Lives: with Family Review of Systems Review of Systems Review of systems are currently negative otherwise addressed in HPI. Allergies: Coded Allergies: Penicillins (Verified Allergy, Unknown, 12/11/24) Medications Current Medications Medications Dose Ordered Sig/Bijal Route Start Time Stop Time Status Last Admin Dose Admin Amlodipine Besylate 10 mg DAILY PO 12/25/24 10:00 Hydralazine HCl 10 mg Q6HP PRN IV 12/24/24 19:15 Sevelamer HCl 800 mg TIDWM PO 12/25/24 08:00 Ondansetron HCl 4 mg Q4HP PRN IV 12/24/24 19:15 Acetaminophen 650 mg Q6HP PRN PO 12/24/24 19:15 Nitroglycerin 0.4 mg Q5MINP PRN SL 12/24/24 19:15 Morphine Sulfate 2 mg Q30M PRN IV 12/24/24 19:15 Exam Vital Signs Vital Signs Date Time Temp Pulse Resp B/P (MAP) Pulse Ox O2 Delivery O2 Flow Rate FiO2 12/24/24 14:05 93 12/24/24 13:30 98.4 18 170/99 (122) 100 98.4 Exam Gen: 39-year-old male in mild distress Skin: Warm, dry, normal color and texture, no rash. HEENT: Normocephalic atraumatic, mucous membranes moist and pink. Neck: Cervical and supraclavicular nodes normal without enlargement, trachea is midline, thyroid gland is normal without masses. Pulmonary: Clear to auscultation and percussion bilaterally. Cardiac: Regular rate and rhythm. No murmur Abdomen: Soft, nontender, nondistended, bowel sounds present all 4 quadrants, no guarding, no rigidity, no organomegaly. Extremities: No cyanosis, clubbing, no edema Neuro: Cranial nerves II through XII grossly intact, normal affect and speech, no focal motor deficits. Labs/Xrays ORDERING PHYSICIAN: TAMY HAGAN MD PROCEDURE(s): CXR2 - CHEST TWO VIEWS ROUTINE REASON: sob ORDER NUMBER(s): [id number], ACCESSION NUMBER(s): [id number] XY CHEST TWO VIEWS ROUTINE CLINICAL HISTORY: sob COMPARISON: XY CHEST TWO VIEWS ROUTINE on DOS: 12/11/24 TECHNIQUE: Frontal and lateral view of the chest was obtained FINDINGS: Lines and Tubes: Right IJ approach hemodialysis catheter terminating over the mid SVC. Lungs: No focal consolidation. Perihilar fullness with residual hazy opacification of bilateral mid to lower lung zone. Pleura: No effusion. No pneumothorax. Cardiomediastinal contours:Borderline cardiomegaly. Bones: No acute osseous abnormality. IMPRESSION: Borderline cardiomegaly with minimal residual CHF/pneumonia. Labs Test 12/24/24 15:12 Range/Units White Blood Count 8.3 4.4-10.8 10^3/uL Red Blood Count 2.60 L 4.5-5.90 10^6/uL Hemoglobin 8.1 L 13.5-17.5 g/dL Hematocrit 24.1 L 41.0-53.0 % Mean Corpuscular Volume 92.8 80.0-100.0 fL Mean Corpuscular Hemoglobin 31.0 28.0-32.0 pg Mean Corpuscular Hemoglobin Concent 33.4 32.0-36.0 g/dL Red Cell Distribution Width 16.0 H 11.8-14.3 % Platelet Count 277 140-450 10^3/uL Mean Platelet Volume 7.3 6.9-10.8 fL Neutrophils (%) (Auto) 80.6 H 37.0-80.0 % Lymphocytes (%) (Auto) 10.0 10.0-50.0 % Monocytes (%) (Auto) 7.2 0.0-12.0 % Eosinophils (%) (Auto) 1.8 0.0-7.0 % Basophils (%) (Auto) 0.4 0.0-2.0 % Neutrophils # (Auto) 6.7 1.6-8.6 10 ^3/uL Lymphocytes # (Auto) 0.8 0.4-5.4 10 ^3/uL Monocytes # (Auto) 0.6 0-1.3 10 ^3/uL Eosinophils # (Auto) 0.2 0-0.8 10 ^3/uL Basophils # (Auto) 0 0-0.2 10 ^3/uL Nucleated Red Blood Cells 0.0 % Sodium Level 138 136-145 mmol/L Potassium Level 5.6 *H 3.5-5.1 mmol/L Chloride Level 104 98-107 mmol/L Carbon Dioxide Level 21 20-31 mmol/L Anion Gap 13 5-15 Blood Urea Nitrogen 96 *H 9-23 mg/dL Creatinine 16.56 *H 0.700-1.30 mg/dL Glomerular Filtration Rate Calc 3 >90 mL/min BUN/Creatinine Ratio 5.8 L 10.0-20.0 Serum Glucose 77 74-106 mg/dL Calcium Level 9.9 8.7-10.4 mg/dL B-Type Natriuretic Peptide 1782.12 0-100 pg/mL Assessment/Plan Assessment/Plan Assessment Fluid overload End-stage renal disease, dialysis dependent Hypertension Hyperkalemia Anemia of chronic disease Noncompliant Plan Admit the patient to telemetry to the hospitalist Nephrology consultation Resume home medications Continue treatment per orders. Plan discussed with: Patient My Orders Orders - HECTOR ZAPATA Procedure Category Date Status Time Amlodipine Tablet PHA 12/25/24 In Process (Norvasc Tablet) 10:00 *[facility] CONS 12/24/24 Transmitted -[place] 19:10 Hydralazine Injection PHA 12/24/24 In Process (Apresoline Inject 19:15 Sevelamer (Renagel) PHA 12/25/24 In Process 08:00 Basic Metabolic Panel LAB 12/25/24 Verified 04:00 Admit ADMIT 12/24/24 Transmitted 19:10 Renal DIET 12/25/24 Transmitted Standard(2gna,3gk,Lopho) Breakfast Ondansetron Hcl PHA 12/24/24 In Process (Zofran) 19:15 Complete Blood Count LAB 12/25/24 Verified 04:00 Cardiac DIET 12/25/24 Transmitted Diet-2gna,Lofat,Lochol Breakfast Echo 2d Mode Cardiac US 12/24/24 Logged DOP 19:10 Condition: Fair RIANNA 12/24/24 In Process 19:10 Acetaminophen Tablet PHA 12/24/24 In Process (Tylenol Tablet) 19:15 Bedrest With Bathroom [facility] 12/24/24 In Process Privileg 19:10 Nitroglycerin [facility] 12/24/24 In Process Sublingual (Ntrostat 19:15 Morphine Sulfate [facility] 12/24/24 In Process Injection 19:15 Stat Ekg For Chest [facility] 12/24/24 In Process Pain 19:10 Notify Md Of Changes [facility] 12/24/24 In Process From Base 19:10 Vendor Management Consultant For [facility] 12/24/24 In Process 24 Hours 19:10 Emergency Dysrhythmia [facility] 12/24/24 In Process Protocol 19:10 Rhythm Strips Once [facility] 12/24/24 In Process Every Shift 19:10 Oxygen By Nasal 12/24/24 Transmitted Cannula 19:10 Date of Service: Dec 24, 2024 Billing Provider: HECTOR ZAPATA Common Visit Codes: [id number] INP/OBS CARE (HIGH) HECTOR ZAPATA Dec 24, 2024 20:31
[2024-12-25] MEDS ORDERED: SODIUM CHL 0.9% 1000 ML BAG XX ONE (07:00)
[2024-12-25] MEDS ORDERED: SEVELAMER 800 MG TAB PO SCH (08:00)
[2024-12-25] MEDS ORDERED: amLODIPine BESYLATE 5 MG TAB PO SCH (10:00)
[2024-12-25] MEDS ORDERED: EPOETIN ALFA-EPBX 4,000 UNIT/ML VIAL SC ONE (21:00)
== END 2024-12-25 01:36 | disposition left against medical advice (07) | DRG 425 ==
LOC: ER 13:02 → OVERFLOW 19:10
PROVIDERS: ADMIT Nurse Practitioner; ATTEND Nurse Practitioner
DX: E87.5 Hyperkalemia (principal); D63.1 Anemia in chronic kidney disease; I12.0 Hypertensive chronic kidney disease with stage 5 chronic kidney disease or end stage renal disease; N18.6 End stage renal disease; E87.70 Fluid overload, unspecified; Z99.2 Dependence on renal dialysis; Z88.0 Allergy status to penicillin; Z91.199 Patient's noncompliance with other medical treatment and regimen due to unspecified reason
CPT/HCPCS: 36415; 71046; 80048; 83880; 85025; 93005; 99291; G0378